=== PATIENT | female | born 1960 | race Caucasian/White ===

== ENCOUNTER 2020-02-17 08:19 | Outpatient (NON) | payer MEDICARE, MEDICAID, SELFPAY ==
[2020-02-17 21:13] LABS: SARS-CoV-2 RNA PCR Negative
== END 2020-02-17 08:20 ==
PROVIDERS: PCP Family Medicine; Visit Provider Family Medicine
DX: Z20.828 Contact with and (suspected) exposure to other viral communicable diseases (principal)
CPT/HCPCS: 87635; C9803; U0003

== ENCOUNTER 2020-11-09 08:10 | Outpatient (CLI) | payer MEDICARE, MEDICAID, SELFPAY ==
[2020-11-09 09:30] LABS: Basophils Absolute Auto 0.1 K/mm3 (0.0-0.1); Basophils Percent Auto 0.8 % (0.2-1.2); Eosinophils Absolute Auto 0.1 K/mm3 (0-0.3); Eosinophils Percent Auto 1.5 % (0-4.4); Hematocrit 41.3 % (37.0-47.0); Hemoglobin 13.9 g/dL (12.0-15.0); Immature Granulocyte Absolute 0.02 K/mm3 (0.00-0.031); Immature Granulocyte Percent A 0.3 % (0-0.5); Lymphocytes Absolute Auto 1.86 K/mm3 (0.9-3.2); Mean Corpuscular HGB Conc 33.7 g/dl (32-36); Mean Corpuscular Hemoglobin 31.1 pg (26-34); Mean Corpuscular Volume 92.4 fl (80-100); Monocytes Absolute Auto 0.6 K/mm3 (0.1-0.6); Monocytes Percent Auto 9.5 % (2.6-8.5); Neutrophils Absolute Auto 3.4 K/mm3 (1.3-6.7); Neutrophils Percent Auto 56.9 % (45.5-73.1); Platelet Count Result 217 k/mm3 (150-375); Red Blood Count 4.47 M/mm3 (4.2-5.4)
[2020-11-09 09:48] LABS: Alanine Aminotransferase 16 U/L (4-35); Albumin Level 4.4 g/dL (3.5-5.1); Alkaline Phosphatase 72 U/L (38-126); Anion Gap 8 mmol/L (8-16); Aspartate Amino Transferase 26 U/L (14-36); Bilirubin,Total 0.8 mg/dL (0.2-1.3); Blood Urea Nitrogen 11 mg/dL (7-17); Calcium 9.2 mg/dL (8.4-10.2); Carbon Dioxide 26 mmol/L (22-30); Chloride 104 mmol/L (98-107); Estimated Glomerular Filt Rate > 60; Glucose 102 mg/dL (65-105); Potassium 4.2 mmol/L (3.4-5.0); Sodium 138 mmol/L (137-145)
[2020-11-09 10:12] LABS: Total Triiodothyronine (T3) 1.36 NG/ML (0.97-1.69)
[2020-11-09 11:30] LABS: Free T4 Free Thyroxine 1.25 ng/mL (0.78-2.19)
== END 2020-11-09 08:11 | disposition home or self-care (01) ==
PROVIDERS: PCP Family Medicine; Visit Provider Nurse Practitioner
DX: F51.01 Primary insomnia (principal); K21.9 Gastro-esophageal reflux disease without esophagitis; J44.9 Chronic obstructive pulmonary disease, unspecified; Z13.0 Encounter for screening for diseases of the blood and blood-forming organs and certain disorders involving the immune mechanism; Z13.6 Encounter for screening for cardiovascular disorders; Z13.220 Encounter for screening for lipoid disorders; Z13.29 Encounter for screening for other suspected endocrine disorder; E55.9 Vitamin D deficiency, unspecified; Z12.11 Encounter for screening for malignant neoplasm of colon; M79.7 Fibromyalgia
CPT/HCPCS: 36415; 80053; 84439; 84443; 84480; 85025

== ENCOUNTER 2021-03-21 10:47 | Emergency (ER) | payer MEDICARE, MEDICAID, SELFPAY ==
--- NOTE | ~2021-03-21 | XR_ITS ---
XR shoulder RT min 2V DATE: 03/21/2021 12:08 INDICATION: Right shoulder pain for one year TECHNIQUE: 4 views COMPARISON: None FINDINGS: There is thoracic scoliosis. No fracture or dislocation, periosteal reaction or bone destruction or abnormal soft tissue calcifica tion of the right shoulder. IMPRESSION: No significant abnormality of the right shoulder Thoracic scoliosis Reviewed, dictated and finalized at location A. ERY MATER
[2021-03-21 11:08] VITALS: BP 120/67; RESP 16; TEMP 37.4; O2SAT 99
--- NOTE | 2021-03-21 11:46 | ED.UPPEXIN ---
HPI - Extremity Injury (Upper) General Chief Complaint: Extremity Injury, Upper Stated Complaint: right shoulder pain Time Seen by Provider: 03/21/21 11:46 Source: patient Mode of arrival: ambulatory Limitations: no limitations History of Present Illness HPI narrative: Denise Kruger is a 60 yo female with asthma, fibromyalcia, who [facility] with right shoulder pain with no loss of strength. Able to do all activities but states it hurts along the top of her shoulder and is into the top of her bicep Related Data Home Medications Medication Instructions Recorded Confirmed albuterol sulfate INHALATION 03/21/21 fluticasone furoate-vilanterol INHALATION 03/21/21 [Breo Ellipta] hydrocodone-acetaminophen tablet 03/21/21 trazodone 03/21/21 Allergies Allergy/AdvReac Type Severity Reaction Status Date / Time Penicillins Allergy Unknown Other Verified 03/21/21 11:22 Contrast Media Allergy Intermediate Other Uncoded 03/21/21 11:22 Review of Systems Review of Systems: CONSTITUTIONAL: Denies fever, chills, sweats. EYES: Denies visual changes, redness, discharge. ENT: Denies rhinorrhea, congestion, sore throat, otalgia. CARDIOVASCULAR: Denies chest pain, palpitations, edema. RESPIRATORY: Denies dyspnea, wheezing, cough GASTROINTESTINAL: Denies abdominal pain, nausea, vomiting, diarrhea. GENITOURINARY: Denies dysuria, hematuria, abnormal discharge SKIN: Denies rash or itching. NEUROLOGIC: Denies numbness, or focal weakness. PSYCHIATRIC: Denies anxiety or depression. Right upper arm pain, pain at top of shoulder PMFSH Past Medical History Medical History Asthma Fibromyalgia Family History Family History Mother Family history of lung cancer Family history of lymphoma Social History Social History (Updated 03/21/21 @ 11:56 by Dayami Ramirez CNP) Smoking packs per day: 0.25 Smoking cigarettes per day: 5.0 Smoking status: Current every day smoker Second hand tobacco smoke exposure: Yes Alcohol intake: never Comments At time of signature, I agree with nursing past medical, surgical, social and family history. There is no relevant family history pertinent to the presenting complaint. Exam Narrative: GENERAL: This is a well-nourished, well-developed patient, in mild distress. HEAD: normocephalic, atraumatic. EYES: Sclera clear/white. Vision is grossly intact. EARS: External ears normal, auditory canals clear and without drainage, TMs normal without perforation. Hearing grossly intact. NOSE: External nose normal without nasal discharge, nares without redness, no rhinorrhea. THROAT: Mucous membranes moist, posterior pharynx NECK: Neck supple, non-tender CARDIOVASCULAR: Regular rate and rhythm without murmurs, gallops, or rubs. RESPIRATORY: Clear to auscultation. Breath sounds equal bilaterally. No wheezes, rales, or rhonchi. GASTROINTESTINAL: Abdomen soft, non-tender, SKIN: warm, intact with no suspicious lesions or rash, good texture and turgor. NEURO: awake, alert, and oriented to person, place and time. There were no obvious focal neurologic abnormalities. Steady gait EXTREMITIES: Normal range of motion. Right shoulder pain at the top of the shoulder at rotator cuff but pain radiates into right upper bicep. Mild right neck pain with movement up and down BACK: Nontender without deformity Course Course Emergency Course: Patient comes to [facility] for evaluation of right shoulder pain on the top of the shoulder that radiates into the bicep, has had neck issues with tingling in her fingers in the past X-ray of right shoulder shows thoracic scoliosis, no significant abnormality of the right shoulder Started on baclofen and continue with pain medication may add 60 mg ibuprofen 3 times daily to other medication in the short-term to manage pain Vital Signs Vital signs: Vital
== END 2021-03-21 12:40 | disposition home or self-care (01) ==
PROVIDERS: Emergency Provider Nurse Practitioner; PCP Family Medicine
DX: M54.10 Radiculopathy, site unspecified (principal); J45.909 Unspecified asthma, uncomplicated; M79.7 Fibromyalgia; F17.210 Nicotine dependence, cigarettes, uncomplicated
CPT/HCPCS: 73030; 99213; G0463

== ENCOUNTER 2021-10-10 14:28 | Outpatient (CLI) | payer MEDICARE, MEDICAID, SELFPAY ==
--- NOTE | ~2021-10-10 | XR_ITS ---
XR lumbar spine 2-3V DATE: 10/10/2021 14:52 INDICATION: Chronic back pain TECHNIQUE: AP, lateral, coned lateral lumbosacral views COMPARISON: None FINDINGS: There is osteopenia. Normal alignment of the lumbar spine. No fracture or bone destruction or spondylolisthesis. The lumba r pedicles are intact. Lumbar and lumbosacral interspaces are well preserved. The sacral iliac joints appear normal. Status post bilateral tubal ligation. IMPRESSION: Osteopenia Reviewed, dictated and finalized at location A. IMPRESSION: Osteopenia
== END 2021-10-10 14:29 | disposition home or self-care (01) ==
LOC: ANHIMG 14:38
PROVIDERS: PCP Family Medicine
DX: M54.9 Dorsalgia, unspecified (principal); M85.88 Other specified disorders of bone density and structure, other site
CPT/HCPCS: 72100

== ENCOUNTER 2022-12-18 19:42 | Emergency (ER) | payer MEDICARE, MEDICAID, SELFPAY ==
[2022-12-18 19:47] VITALS: BP 126/71; PULSE 98; RESP 16; TEMP 36.7; O2SAT 100
--- NOTE | 2022-12-18 20:07 | ED.EYEPROB ---
HPI - Eye Problem General Chief complaint: Eye Problems Stated complaint: Right Eye Irritation Time Seen by Provider: 12/18/22 20:00 Source: patient Mode of arrival: ambulatory Limitations: no limitations History of Present Illness HPI Narrative: 62 y/o female presented for c/o persistent stye to right upper eyelid for about 3 weeks. Onset was during URI, pt has taken 15 days of antibiotics prescribed by urgent care, which she completed 3 days ago. States she contacted her PCP today regarding the stye, and was prescribed Amoxicillin, she states she does not want to take another course of abx. Denies vision changes, photophobia, foreign body, injury, or drainage. chief complaint: eye pain Related Data Allergies Allergy/AdvReac Type Severity Reaction Status Date / Time Penicillins Allergy Unknown Other Verified 12/18/22 19:56 Contrast Media Allergy Intermediate Other Uncoded 12/18/22 19:56 Review of Systems Review of Systems: CONSTITUTIONAL: Denies body aches, fever, chills EYES:Endorses swelling, redness and pain to right upper eyelid; denies FB sensation, photophobia,visual changes ENT: Denies rhinorrhea, congestion, sore throat, or otalgia. CARDIOVASCULAR: Denies chest pain, palpitations RESPIRATORY: Denies cough or dyspnea. GASTROINTESTINAL: Denies abdominal pain, nausea, vomiting, or diarrhea. SKIN: Denies rash, itching, or wounds. MUSCULOSKELETAL: Denies back pain, joint pain, or myalgia. NEUROLOGIC: Denies headache, numbness, tingling, or weakness. All systems reviewed & are unremarkable except as noted in HPI and below PMFSH Past Medical History Medical History Asthma Fibromyalgia Family History Family History Mother Family history of lung cancer Family history of lymphoma Social History Social History Smoking packs per day: 0.25 Smoking cigarettes per day: 5.0 Smoking status: Current every day smoker Second hand tobacco smoke exposure: Yes Alcohol intake: never Comments At time of signature, I have reviewed and agree with nursing past medical, surgical, social and family history unless otherwise noted. Please see nursing chart for further information. There is no relevant family history pertinent to the presenting complaint Exam Narrative: GENERAL: Well-appearing HEAD: Normocephalic, atraumatic. EYES: Right upper eye lid swelling, redness and tenderness at mid lid c/w external hordeolum. No conjunctival injection or drainage, perrla, EOMI. Lid eversion shows no FB. ENT: Mucous membranes pink and moist. No rhinorrhea. TMs normal bilaterally. Throat normal. Uvula midline. CHEST: Clear to auscultation. HEART: Regular rate and rhythm. ABDOMEN: Soft, nontender, nondistended SKIN: Warm, dry, no rash. Normal skin turgor. NEURO: No focal deficits. Alert and oriented x3 PSYCH: Normal affect. Course Course Emergency Course: Patient is aware of diagnosis, understands and agrees to treatment plan. Anticipatory guidance given. Patient agrees to follow-up as directed and is aware of reasons to seek care at the emergency department. Portions of this record may have been created with voice recognition software Level of Care: Express Care Visit Vital Signs Vital signs: Vital Signs Temperature 98.0 F 12/18/22 19:47 Pulse Rate 98 12/18/22 19:47 Respiratory Rate 16 12/18/22 19:47 Blood Pressure 126/71 12/18/22 19:47 Pulse Oximetry 100 12/18/22 19:47 Oxygen Delivery Room Air 12/18/22 19:47 Temperature 98.0 F 12/18/22 19:47 Pulse Rate 98 12/18/22 19:47 Respiratory Rate 16 12/18/22 19:47 Blood Pressure 126/71 12/18/22 19:47 Pulse Oximetry 100 12/18/22 19:47 Oxygen Delivery Room Air 12/18/22 19:47 MDM - Eye Problem MDM Narrative Medical decision making kita
== END 2022-12-18 20:11 | disposition home or self-care (01) ==
PROVIDERS: Emergency Provider Nurse Practitioner Family; PCP Family Medicine
DX: H00.011 Hordeolum externum right upper eyelid (principal); F17.210 Nicotine dependence, cigarettes, uncomplicated; J45.909 Unspecified asthma, uncomplicated; M79.7 Fibromyalgia
CPT/HCPCS: 99211; G0463

== ENCOUNTER 2023-01-18 14:12 | Emergency (ER) | payer MEDICARE, MEDICAID, SELFPAY ==
--- NOTE | ~2023-01-18 | XR_ITS ---
EXAMINATION: XR foot RT min 3V DATE: 01/18/2023 14:44 INDICATION: Trauma to the right fourth and fifth toes TECHNIQUE: Dorsoplantar, two oblique and lateral views of the right foot were obtained. COMPARISON: None. FINDINGS: 20 degrees hallux valgus bunion with mild hypertrophic change along the medial head of the first meta tarsal. Alignment is otherwise normal. Irregular cortical contour and the diaphysis of the right four th proximal phalanx suspicious for age indeterminate nondisplaced fracture. No other lesions suspicio us for fracture identified. Mild osteoarthritis at the first metatarsophalangeal and a few tarsometat arsal and interphalangeal joints. Soft tissue swelling lateral to the fifth metatarsophalangeal joint IMPRESSION: 1. Irregular cortical contour to the diaphysis of the right fifth metatarsal suspicious for age indet erminate fracture. Favor chronic but would correlate for location of the reported prior to fracture. Reviewed, dictated and finalized at location A. IMPRESSION: 1. Irregular cortical contour to the diaphysis of the right fifth metatarsal bauer spicious for age indeterminate fracture. Favor chronic but would correlate for location of the reported prior to fracture.
--- NOTE | 2023-01-18 14:22 | ED.GENADULT ---
HPI - General Adult General Chief complaint: Extremity Injury, Lower Stated complaint: Right Foot Pain Source: patient and RN notes reviewed History of Present Illness HPI narrative: 62 yo F presents to urgent care with complaints of right foot pain. Pt states she got up in the middle of the night and accidentally kicked the door frame with her right foot. Pt presents with bruising, swelling, and tenderness to her foot. Denies any numbness, tingling, or other injury. Pt has not taken anything for her symptoms. Related Data Home Medications Medication Instructions Recorded Confirmed albuterol sulfate 2.5 mg/3 mL mg 01/18/23 (0.083 %) solution for nebulization famotidine 20 mg tablet mg 01/18/23 fluticasone furoate 100 inhalation 01/18/23 mcg-vilanterol 25 mcg/dose inhalation powder (Breo Ellipta) hydrocodone 10 mg-acetaminophen tablet 01/18/23 325 mg tablet Allergies Allergy/AdvReac Type Severity Reaction Status Date / Time Penicillins Allergy Unknown Other Verified 01/18/23 14:28 Contrast Media Allergy Intermediate Other Uncoded 01/18/23 14:28 Review of Systems Review of Systems: CONSTITUTIONAL: Denies fever, chills, or sweats. EYES: Denies visual changes, redness, or discharge. ENT: Denies otalgia and sore throat CARDIOVASCULAR: Denies chest pain, palpitations, or edema. RESPIRATORY: Denies cough or dyspnea. GASTROINTESTINAL: Denies abdominal pain, nausea, vomiting, or diarrhea. GENITOURINARY: Denies dysuria or hematuria. SKIN: Denies rash or itching. MUSCULOSKELETAL: right foot pain NEUROLOGIC: Denies headache, numbness, or weakness. Pertinent positives per HPI. [facility] Past Medical History Medical History Asthma Fibromyalgia Family History Family History Mother Family history of lung cancer Family history of lymphoma Social History Social History Smoking packs per day: 0.25 Smoking cigarettes per day: 5.0 Smoking status: Current every day smoker Second hand tobacco smoke exposure: Yes Alcohol intake: never Comments At the time of my signature, I reviewed and agree with the nursing past medical, surgical, social, and family history. There is no relevant family history pertinent to the patient complaint. Exam Narrative: GENERAL: This is a well-nourished, well-developed patient, in no apparent distress. HEAD: normocephalic, atraumatic. EYES: Sclera clear/white. Vision is grossly intact. EARS: External ears normal, auditory canals clear and without drainage. Hearing grossly intact. NOSE: External nose normal with no obvious nasal discharge, nares without redness, no rhinorrhea. THROAT: Mucous membranes moist, posterior pharynx clear. NECK: Neck supple, non-tender without lymphadenopathy, masses or thyromegaly. CARDIOVASCULAR: Regular rate RESPIRATORY: No respiratory distress. SKIN: warm, intact with no suspicious lesions or rash, good texture and turgor. NEURO: awake, alert, and oriented to person, place and time. There were no obvious focal neurologic abnormalities. EXTREMITIES: bruising, mild swelling, and tenderness to right, distal, 5th, metatarsal BACK: Nontender without deformity or crepitus. No flank tenderness. Course Course Level of Care: Express Care Visit Vital Signs Vital signs: Vital Signs Temperature 99.2 F 01/18/23 14:37 Pulse Rate 93 01/18/23 14:37 Respiratory Rate 01/18/23 14:37 Blood Pressure 120/69 01/18/23 14:37 Pulse Oximetry 100 01/18/23 14:37 Oxygen Delivery Room Air 01/18/23 14:37 Temperature 99.2 F 01/18/23 14:37 Pulse Rate 93 01/18/23 14:37 Respiratory Rate 16 01/18/23 14:37 Blood Pressure 120/69 01/18/23 14:37 Pulse Oximetry 100 01/18/23 14:37 Oxygen Delivery Room Air 01/18/23 14:37 reviewed Medical Dec
[2023-01-18 14:37] VITALS: BP 120/69; PULSE 93; RESP 16; TEMP 37.3; O2SAT 100
== END 2023-01-18 15:35 | disposition home or self-care (01) ==
PROVIDERS: Emergency Provider Nurse Practitioner Family; PCP Family Medicine
DX: S92.901A Unspecified fracture of right foot, initial encounter for closed fracture (principal); W22.09XA Striking against other stationary object, initial encounter; J45.909 Unspecified asthma, uncomplicated; M79.7 Fibromyalgia; F17.210 Nicotine dependence, cigarettes, uncomplicated
CPT/HCPCS: 73630; 99214; G0463

== ENCOUNTER 2023-06-12 09:06 | Outpatient (CLI) | payer MEDICARE, MEDICAID, SELFPAY ==
[2023-06-12 10:26] LABS: Basophils Percent Auto 0.5 % (0.2-1.2); Eosinophils Absolute Auto 0.1 K/mm3 (0-0.3); Eosinophils Percent Auto 1.6 % (0-4.4); Hematocrit 40.1 % (37.0-47.0); Immature Granulocyte Absolute 0.01 K/mm3 (0.00-0.031); Immature Granulocyte Percent A 0.2 % (0-0.5); Lymphocytes Percent Auto 31.3 % (18.3-44.2); Mean Corpuscular HGB Conc 32.4 g/dl (32-36); Mean Corpuscular Hemoglobin 30.8 pg (26-34); Mean Platelet Volume 11.5 fl (7.4-10.4); Monocytes Absolute Auto 0.6 K/mm3 (0.1-0.6); Monocytes Percent Auto 9.4 % (2.6-8.5); Neutrophils Absolute Auto 3.7 K/mm3 (1.3-6.7); Platelet Count Result 225 k/mm3 (150-375); Red Blood Count 4.22 M/mm3 (4.2-5.4); Red Cell Distribution Width 13.4 % (11.5-14.5); White Blood Count 6.4 K/mm3 (4.5-10.0)
[2023-06-12 10:36] LABS: Alanine Aminotransferase 17 U/L (6-35); Albumin Level 4.1 g/dL (3.5-5.1); Alkaline Phosphatase 63 U/L (38-126); Anion Gap 6 mmol/L (8-16); Aspartate Amino Transferase 23 U/L (14-36); Bilirubin,Total 0.8 mg/dL (0.2-1.3); Blood Urea Nitrogen 11 mg/dL (7-17); Calcium 9.2 mg/dL (8.4-10.2); Carbon Dioxide 26 mmol/L (22-30); Chloride 105 mmol/L (98-107); Cholesterol 205 mg/dL (0-200); Estimated Glomerular Filt Rate > 60; Glucose 97 mg/dL (65-110); HDL Direct 59 mg/dL; Potassium 4.4 mmol/L (3.4-5.0); Sodium 137 mmol/L (137-145); Triglycerides 62 mg/dL (<150)
[2023-06-12 10:48] LABS: LDL Cholesterol Direct 123 mg/dL
[2023-06-12 11:06] LABS: Free T4 Free Thyroxine 1.21 ng/mL (0.78-2.19)
[2023-06-12 11:07] LABS: Total Triiodothyronine (T3) 1.29 NG/ML (0.97-1.69)
== END 2023-06-12 09:07 | disposition home or self-care (01) ==
LOC: ANHLAB 09:15
PROVIDERS: PCP Family Medicine
DX: E78.5 Hyperlipidemia, unspecified (principal); R53.83 Other fatigue
CPT/HCPCS: 36415; 80053; 80061; 84439; 84443; 84480; 85025

== ENCOUNTER 2023-08-22 10:56 | Emergency (ER) | payer MEDICARE, MEDICAID, SELFPAY ==
--- NOTE | ~2023-08-22 | XR_ITS ---
XR hand LT min 3V 08/22/2023 11:50 INDICATION: Left hand pain PROCEDURE: 3 views left hand COMPARISON: No prior studies for comparison. FINDINGS: Fracture, dislocation or subluxation is not identified. Mild osteoarthritis of the first ca rpal metacarpal joint. The soft tissues appear within normal limits. No foreign bodies are identifie d. IMPRESSION: 1: NO ACUTE BONE OR JOINT ABNORMALITY IDENTIFIED. Reviewed, dictated and finalized at location B.
[2023-08-22 10:57] VITALS: BP 136/88; PULSE 102; RESP 16; TEMP 37.2; O2SAT 97
--- NOTE | 2023-08-22 11:15 | PC.NURSE ---
Pt states she took a Hydrocodone this morning around 0700 but reports it did nothing for her pain
--- NOTE | 2023-08-22 11:52 | ED_ITS ---
HPI - Extremity Injury (Upper) General Chief Complaint: Extremity Injury, Upper Stated Complaint: Hand issue Time Seen by Provider: 08/22/23 11:24 History of Present Illness HPI narrative: 63-year-old female with history of fibromyalgia presents to emergency department for left hand pain x2 weeks. Patient states 3 weeks ago she was opening a jar and about a week later began developing pain over the palmar aspect of her hand. She has seen that it was secondary to opening a jar. She was seen at urgent care about 1 week ago and had negative x-rays of the hand. She has been wearing a wrist splint and has been icing the hand without improvement. She has also been on 2 rounds of steroids from urgent care without improvement of hand pain. She takes hydrocodone for chronic pain which she has been taking without improvement. Related Data Home Medications Medication Instructions Recorded Confirmed hydrocodone 10 mg-acetaminophen tablet 01/18/23 06/16/23 325 mg tablet albuterol sulfate 2.5 mg/3 mL mg inhalation PRN 03/20/23 06/16/23 (0.083 %) solution for nebulization acyclovir PO PRN 06/16/23 06/16/23 cetirizine 10 mg tablet (Zyrtec) 5 mg PO DAILY PRN 06/16/23 06/16/23 cholecalciferol (vitamin D3) PO 2XW 06/16/23 06/16/23 Allergies Allergy/AdvReac Type Severity Reaction Status Date / Time Iodinated Contrast Media Allergy Unknown Sneezing Verified 08/22/23 11:16 Penicillins Allergy Unknown Other Verified 08/22/23 11:16 Review of Systems Review of Systems: CONSTITUTIONAL: Denies fever, chills, or sweats. EYES: Denies visual changes, redness, or discharge. ENT: Denies rhinorrhea, congestion, sore throat, or otalgia. CARDIOVASCULAR: Denies chest pain, palpitations, or edema. RESPIRATORY: Denies cough or dyspnea. GASTROINTESTINAL: Denies abdominal pain, nausea, vomiting, or diarrhea. GENITOURINARY: Denies dysuria or hematuria. SKIN: Denies rash or itching. MUSCULOSKELETAL: See HPI NEUROLOGIC: Denies headache, numbness, or weakness. PSYCHIATRIC: Denies anxiety or depression. [facility] Past Medical History Medical History Anxiety Asthma Crohn's disease Fibromyalgia History of back injury History of pulmonary embolism Surgical History Surgical History History of breast implant History of surgery of uterus History of tonsillectomy Family History Family History Mother Family history of lung cancer Family history of lymphoma Father Depression Anxiety Alcoholism Social History Social History Social History: Caffeine-coffee/soda Smoking packs per day: 0.5 Smoking cigarettes per day: 10.0 Smoking status: Current every day smoker Tobacco type: cigarettes Second hand tobacco smoke exposure: Yes Alcohol intake: current Alcohol use details: occasional Substance use: never Substance use type: does not use Current Housing: Decline to Answer Concerned About Future Housing: Decline to Answer Difficulty Paying Gas/Electric Bills: Decline to Answer Difficulty Paying for Meds: Decline to Answer Currently Unemployed: Decline to Answer Education: Decline to Answer Difficulty w/ Childcare or Family Care: Decline to Answer Living arrangements: alone Occupation/Education: unemployed Additional occupation/education comments: disabled Exam Narrative: GENERAL: Well-appearing, well-nourished, and in no acute distress. HEAD: Normocephalic, atraumatic. NECK: Supple. CHEST: Clear to auscultation. No respiratory distress. HEART: Regular rate and rhythm. No murmur heard. Normal peripheral pulses. EXTREMITIES: LUE: No obvious deformity, ecchymosis or edema. Patient points to her thenar eminence when describing pain but has no tenderness to palpation. She has full range of motion of her hand and wrist. No tenderness to her ulna or radius, no snuffbox tenderness. No tenderness to fingers, carpal or metacarpals. Negative Padmaja's test. She is able to do a thumbs-up, oppose thumb and 5th digit, flex her fingers and extend her hand, and make a fist. Sensation intact throughout. Cap refill less than 2. Radial pulse 2 +. SKIN: Warm, dry, no rash. NEURO: No focal deficits. Alert and oriented x3 Course Vital Signs Vital signs: Vital Signs Temperature 98.9 F 08/22/23 10:57 Pulse Rate 102 H 08/22/23 10:57 Respiratory Rate 16 08/22/23 10:57 Blood Pressure 136/88 08/22/23 10:57 Pulse Oximetry 97 08/22/23 10:57 Oxygen Delivery Room Air 08/22/23 10:57 Temperature 98.9 F 08/22/23 10:57 Pulse Rate 102 H 08/22/23 10:57 Respiratory Rate 16 08/22/23 10:57 Blood Pressure 136/88 08/22/23 10:57 Pulse Oximetry 97 08/22/23 10:57 Oxygen Delivery Room Air 08/22/23 10:57 MDM - Extremity Injury (Upper) MDM Narrative Medical decision making narrative: 63-year-old female presents to the emergency department for pain overlying her thenar eminence x2 weeks. She has had negative films at urgent care and has been on 2 rounds of steroids without improvement. Triage vital significant for mild tachycardia 102, otherwise unremarkable. Exam significant for the above. X-rays of the hand are unremarkable. Imaging and exam discussed with the patient. Will prescribe naproxen, encouraged her to continue wearing the splint, ice and follow up with Hand surgery. Referral provided. ED return precautions discussed. She is agreeable to plan verbalized understanding. Discharged in stable condition. Discharge Plan Discharge Clinical Impression: Hand sprain Qualifiers: Encounter type: initial encounter Laterality: left Qualified Code(s): S63.92XA - Sprain of unspecified part of left wrist and hand, initial encounter Patient Disposition: Home, Self-Care Condition: Stable Instructions: Antibiotic Form, Hand Sprain (ED) Additional Instructions: You were evaluated in the emergency department for left hand pain. Her x-rays do not show any broken bones or bony abnormalities. Please continue to wear the splint to her wearing, ice, and take naproxen as prescribed. He can also take your prescribed pain medications as directed. Please follow-up closely with a hand surgeon for further evaluation treatment. Return to the emergency department if you develop worsening or concerning symptoms. Prescriptions: New naproxen 500 mg tablet 500 mg PO BID PRN (Reason: pain) Qty: 20 0RF No Action hydrocodone-acetaminophen 10-325 mg tablet albuterol sulfate 2.5 mg /3 mL (0.083 %) solution for nebulization inhalation PRN cholecalciferol (vitamin D3) PO 2XW acyclovir PO PRN cetirizine [Zyrtec] 10 mg tablet 5 mg PO DAILY PRN fluticasone propionate [Flonase Allergy Relief] 50 mcg/actuation spray,suspension 1 - 2 spray intranasal BID Qty: 16 1RF Rx Instructions: administer into each nostril. Aim back/up/out Follow-up/Referrals: Gretchen Peres MD [Physician] - 1 Day Fermín Langford MD [Primary Care Provider] -
[2023-08-22 12:23] VITALS: BP 119/59; PULSE 82; RESP 16; TEMP 36.6; O2SAT 96
== END 2023-08-22 12:25 | disposition home or self-care (01) ==
PROVIDERS: Emergency Provider Physician Assistant; PCP Family Medicine
DX: S63.92XA Sprain of unspecified part of left wrist and hand, initial encounter (principal); J45.909 Unspecified asthma, uncomplicated; K50.90 Crohn's disease, unspecified, without complications; M79.7 Fibromyalgia; F17.210 Nicotine dependence, cigarettes, uncomplicated; Z86.711 Personal history of pulmonary embolism; X50.9XXA Other and unspecified overexertion or strenuous movements or postures, initial encounter
CPT/HCPCS: 73130; 99283

== ENCOUNTER 2023-09-26 08:20 | Outpatient (CLI) | payer MEDICARE, MEDICAID, SELFPAY ==
--- NOTE | ~2023-09-26 | CT_ITS ---
EXAMINATION: CT soft tissue neck w con DATE: 09/26/2023 08:51 INDICATION: Malignant neoplasm of larynx, unspecified. TECHNIQUE: Computed tomography (CT) of the neck was performed with 75 mL Omnipaque-350 intravenous co ntrast. Automated exposure control and iterative reconstruction technique were employed. The dose-bairon gth product was 467.43 mGy-cm. COMPARISON: None FINDINGS: There is mild emphysema. There is mild scarring at the lung apices. There is a 3 mm nodule in left thyroid lobe, likely not clinically significant. There are no pathologically enlarged lymph n odes. There is no visible plaque in the proximal internal carotid arteries. The pharynx and larynx ar e unremarkable. There is mild mucosal thickening in the ethmoid sinuses. The mastoid air cells are no rmal. There is severe cervical spondylosis. IMPRESSION: 1. No malignancy identified. Reviewed, dictated and finalized at location A.
[2023-09-26 08:38] LABS: Estimated Glomerular Filt Rate > 60
== END 2023-09-26 08:21 | disposition home or self-care (01) ==
PROVIDERS: PCP Family Medicine; Visit Provider Radiology Radiation Oncology
DX: C32.9 Malignant neoplasm of larynx, unspecified (principal)
CPT/HCPCS: 70491; Q9967

== ENCOUNTER 2024-01-08 10:45 | Outpatient (CLI) | payer MEDICARE, MEDICAID, SELFPAY ==
[2024-01-08 11:09] LABS: Basophils Percent Auto 0.7 % (0.2-1.2); Eosinophils Absolute Auto 0.1 K/mm3 (0-0.3); Eosinophils Percent Auto 1.1 % (0-4.4); Hematocrit 40.2 % (37.0-47.0); Hemoglobin 13.4 g/dL (12.0-15.0); Immature Granulocyte Absolute 0.06 K/mm3 (0.00-0.031); Immature Granulocyte Percent A 1.4 % (0-0.5); Lymphocytes Absolute Auto 1.06 K/mm3 (0.9-3.2); Lymphocytes Percent Auto 24.1 % (18.3-44.2); Mean Corpuscular HGB Conc 33.3 g/dl (32-36); Mean Corpuscular Hemoglobin 31.8 pg (26-34); Mean Corpuscular Volume 95.5 fl (80-100); Mean Platelet Volume 10.2 fl (7.4-10.4); Monocytes Absolute Auto 0.6 K/mm3 (0.1-0.6); Monocytes Percent Auto 12.7 % (2.6-8.5); Neutrophils Absolute Auto 2.6 K/mm3 (1.3-6.7); Platelet Count Result 181 k/mm3 (150-375); Red Blood Count 4.21 M/mm3 (4.2-5.4); White Blood Count 4.4 K/mm3 (4.5-10.0)
[2024-01-08 11:28] LABS: Alanine Aminotransferase 27 U/L (6-35); Alkaline Phosphatase 55 U/L (38-126); Anion Gap 5 mmol/L (4-12); Aspartate Amino Transferase 26 U/L (14-36); Bilirubin,Total 0.5 mg/dL (0.2-1.3); Blood Urea Nitrogen 12 mg/dL (7-17); Calcium 9.4 mg/dL (8.4-10.2); Carbon Dioxide 29 mmol/L (22-30); Chloride 102 mmol/L (98-107); Estimated Glomerular Filt Rate > 60; Glucose 86 mg/dL (65-110); Sodium 136 mmol/L (137-145)
[2024-01-08 11:53] LABS: Total Triiodothyronine (T3) 1.16 NG/ML (0.97-1.69)
[2024-01-08 11:54] LABS: Free T4 Free Thyroxine 1.15 ng/mL (0.78-2.19)
== END 2024-01-08 10:46 | disposition home or self-care (01) ==
LOC: ANHLAB 10:48
PROVIDERS: PCP Family Medicine; Visit Provider Registered Nurse
DX: C14.0 Malignant neoplasm of pharynx, unspecified (principal); R53.83 Other fatigue
CPT/HCPCS: 36415; 80053; 84439; 84443; 84480; 85025

== ENCOUNTER 2024-06-01 09:30 | Outpatient (RCR) | payer MEDICARE, MEDICAID, SELFPAY ==
[2023-09-16 13:04] VITALS: BMI 26.2
[2023-09-16 13:09] VITALS: BP 110/66; PULSE 88; TEMP 37.5; O2SAT 98
--- NOTE | 2023-09-16 15:01 | P.CONRAD_ITS ---
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 new patient who is seen today in [facility] at the request of Dr. Call to be evaluated and discuss radiation treatment options for her recent diagnosis of early larynx cancer. Information pertinent to this evaluation is as follows: 63 y/o female with smoking history who presented with progressive hoarseness and voice changes. She underwent in-office scope exam on 07/24/23 (Dr. Call) which revealed normal movement of vocal cords bilaterally, irregular tissue on superior surface of each anterior true vocal fold and false vocal cord with anterior commissure involvement. She underwent direct microlaryngoscopy with biopsy on 08/26/23 (Dr. Call) which noted diffuse sessile papillomatous lesions involving the surface of both vocal folds anteriorly, including anterior commissure, and extending onto the left false vocal cord. Biopsy confirmed keratinizing SCC. PET/CT from 09/02/23 showed no evidence of regional nalini or distant metastases. She was referred for definitive RT. She is not interested in surgical options as she would like to preserve her larynx and voice if possible. Denise Kruger presents to the radiation oncology clinic today for formal consultation. She is accompanied in clinic today by her boyfriend. She continues to have hoarseness in her voice. No neck masses. No neck or throat pain. Eating and drinking well. No dysphagia or odynophagia. She continues to smoke 0.5 PPD (prior 40 pack year smoking history). She has a history of fibromyalgia and is on disability for this. She lives in [place], [place] alone. 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 She reports a prior CT contrast allergy where she had to sneeze continuously for [address] scan 5 years ago. She did not have anaphylaxis and does not recall receiving any specific treatment for this contrast reaction . She had tolerated many prior CT scans with IV contrast without difficulty. Next dental evaluation scheduled for 09/22/23. Review of Systems: See HPI. Past Medical/Surgical History No prior history of radiotherapy No history of active collagen vascular disease including scleroderma No implanted pacemaker or defibrillator Social History Reviewed Family History Reviewed Allergies Reviewed, see above Medications No current outpatient medications on file. No current facility-administered medications for this visit. Physical Exam Vital signs There were no vitals filed for this visit. ECOG: (1) Restricted in physically strenuous activity, ambulatory and able to do work of light nature General Appearance: The patient is a well-developed, well-nourished female, sitting, in no acute distress. Eyes: EOMI. Sclerae are anicteric. ENMT: Mucous membranes are moist. The oropharynx is clear. Speech: Clear, fluent. Dentition: Fair Oral cavity mucosa: No lesions Oropharynx: No visible lesions Lymphatics: There is no palpable cervical, supraclavicular, or infraclavicular adenopathy. Respiratory: Breathing comfortably at rest without wheeze Skin: Skin of the head and neck has good turgor with no evidence of infection, tumor invasion, or breakdown. There are no surgical scars to suggest prior head and neck surgery. Radiology Review: I personally reviewed the available images from the radiologic examinations noted above in the HPI, with the findings as noted above. Histopathology: see HPI Diagnosis: Plan: 63 y/o female with current 40 pack year smoking history, history of fibromyalgia on disability, who presents with a new diagnosis of a [id number] SCC of the glottic larynx with involvement of the bilateral TVC/FVC and anterior commissure. She is pending CT neck. PET/CT shows no evidence of regional nalini or distant metastases. We discussed the use of radiotherapy alone for the treatment of early larynx cancer . The logistics and anticipated side effects of a course of definitive radiation were discussed. Radiation will be delivered daily, Friday through Friday, for approximately 6-7 weeks. Prior to the start of radiation, CT simulation would need to be performed. These images will be used in the treatment planning process, and treatment would be able to begin approximately 1 week after simulation. Anticipated acute effects of radiation were discussed and include but are not limited to fatigue, irritation, redness, dryness of the skin of the neck, painful swallowing, and potential for worsening hoarseness of voice due to transient edema during treatment. Late effects of treatment include the potential for dry mouth, scar tissue in the region of the treatment field, and potential for permanent laryngeal dysfunction including permanent alteration in voice quality. I would like to obtain a CT neck with contrast with pre-medication. I explained that local T staging is extremely important and PET/CT is not the ideal modality for T staging. I want to ensure she truly has T2 disease. I explained that for T2 disease, RT alone to the glottis is an appropriate treatment. However, if she has T3 disease, I would consider treating the bilateral neck LN electively and she would likely need concurrent chemotherapy for optimal chance of cancer control. Next steps: 1. Smoking cessation:Ms. Kruger was counseled extensively regarding the importance of smoking cessation. Continued smoking will both make radiation treatment more toxic as well as increase the risk of recurrence in the future. Development of invasive disease following radiation will often result in laryngectomy. Ms. Kruger understands the importance of complete smoking cessation. When she returns for CT simulation later this week she will let me know how I can best support her smoking cessation efforts and provide me with a quit date at which time she will throw away all smoking-related paraphernalia. 2. CT neck with contrast for local staging. I advised her to take 50 mg of oral bendaryl 1 hour prior to the scan. 3. CT Simulation will be scheduled in the coming week at the time of nearest convenience to the patient. On 09/30/23. Ms. Kruger had a chance to ask questions, and all were answered to her apparent satisfaction. She was provided with my contact information and knows that she can call us at any time with any questions or concerns that may arise prior to her scheduled return visit. Ms. Kruger is noted to have 0/10 pain in clinic today. Her individualized pain management will therefore consist of no intervention needed as the patient notes no pain of significance. Thank you for the opportunity to participate in Ms. Kruger's care. Please do not hesitate to contact me if I can provide any additional assistance. Kai Tellez MD I spent 60 minutes on visit today, including chart review, time with patient, documentation, and coordination of care. - Medical History Medical History (Last Reviewed 08/22/23 @ 11:53 by Phoeeb Beatty PA-C) Anxiety Asthma Crohn's disease Fibromyalgia History of back injury History of pulmonary embolism - Surgical History Surgical History (Last Reviewed 08/22/23 @ 11:53 by Phoebe Beatty PA-C) History of breast implant History of surgery of uterus History of tonsillectomy - Family History Family History (Last Reviewed 08/22/23 @ 11:53 by Phoebe Beatty PA-C) Mother Family history of lung cancer Family history of lymphoma Father Depression Anxiety Alcoholism - Social History Social History (Last Reviewed 08/22/23 @ 11:53 by Phoebe Beatty PA-C) Alcohol Use: Alcohol intake: current Alcohol use details: occasional Substance Use: Substance use: never Substance use type: does not use Others: Spiritual care concerns: No Living Arrangements: Living arrangements: alone Oppucation/Education: Occupation/Education: unemployed Smoking Status: Smoking status: Current every day smoker Tobacco type: cigarettes Second hand tobacco smoke exposure: Yes Smoking Pack-years: Smoking packs per day: 1 Smoking cigarettes per day: 20.0 Years smoked: 40 Smoking pack-years: 40.00 Comments: Additional smoking assessment comments: down to .5 pack now Social Determinants of Health: What is Your Housing Situation Today?: Decline to Answer Are You Worried That in the Next 2 Months, You May Not Have Your Own Housing to Live In?: Decline to Answer Do You Have Trouble Paying Your Heating Or Electricity Bill?: Decline to Answer Do You Have Trouble Paying For Medicines?: Decline to Answer Are You Currently Unemployed and Looking for Work?: Decline to Answer Highest Level of Education Completed: Decline to Answer Do You Have Trouble With Childcare or the Care of a Family Member?: Decline to Answer - Allergies Allergies Allergy/AdvReac Type Severity Reaction Status Date / Time Iodinated Contrast Media Allergy Unknown Sneezing Verified 08/22/23 11:16 Penicillins Allergy Unknown Other Verified 08/22/23 11:16 Exam - Vital Signs Vital Signs - 24 hr 09/16/23 13:09 Temperature 37.5 C Pulse Rate 88 Blood Pressure 110/66 Pulse Oximetry 98
--- NOTE | 2023-09-30 10:19 | PDRADONCFUV ---
Follow Up Note - Date/Time 09/30/23 10:19 - Interval History RADIATION ONCOLOGY FOLLOW UP DOS: 09/30/23 DIAGNOSIS: 63 y/o female with current 40 pack year smoking history, history of fibromyalgia on disability, who presents with a new diagnosis of a [id number] SCC of the glottic larynx with involvement of the bilateral TVC/FVC and anterior commissure. PET/CT shows no evidence of regional nalini or distant metastases. I plan to treat her with definitive RT alone 70Gy/35Fx using IMRT. HISTORY & NARRATIVE: She was previously seen in consultation and returns today for @HIS@ CT simulation. Since consultation, she reports feeling generally well. There have been no significant changes to the health history in the interim. CT neck showed no evidence of more advanced local disease (such as thyroid cartilage invasion). PHYSICAL EXAMINATION: Vital signs: see RN note ECO General Appearance: The patient is a well-developed, well-nourished female, sitting, in no acute distress. HEENT: normocephalic, atraumatic. Mucus membranes moist. +Hoarseness Lungs: Breathing comfortably at rest without wheeze Abdomen: Non-distended Skin: warm, dry, no rashes or lesions Neurologic: Patient awake and alert, responds to questions appropriately ASSESSMENT & PLAN: She returns today for CT simulation. I reviewed with her the steps involved in the CT simulation today. We also discussed the logistics involved with radiation treatment planning. We reviewed the anticipated acute and late effects of treatment. Written informed consent was signed in clinic today. She knows to contact me with questions or concerns prior to the return visit. Pain score 0/10, so no change to pain mgmt. Kai Tellez MD
[2023-09-30 10:20] VITALS: BP 124/80; PULSE 82; TEMP 36.2; O2SAT 98
--- NOTE | 2023-09-30 10:22 | WPDRADIATPRO ---
Radiation Procedure Note - Date/Time Date/Time: 09/30/23 10:22 - Summary Summary: Procedure Date: 09/30/[address] SIMULATION PROCEDURE PURPOSE: The patient is undergoing a virtual CT simulation for external beam radiation treatment planning. Today?s CT dataset will be utilized for intensity modulated treatment planning (IMRT). TREATMENT SITE(S): Glottic Larynx NUMBER OF AREAS OR WOODARD: One treatment area was simulated today. NUMBER OF PORTS: IMRT using multiple static gantry angles, arcs, or helical tomotherapy will be needed to cover the treatment volume and adequately protect nearby critical normal tissues. The number of ports will be determined during the treatment planning process. EQUIPMENT USED: Simulation was performed on the department?s dedicated CT simulator. IMMOBILIZATION: An aquaplast face mask was fabricated to immobilize the patient?s head and neck during treatment. CONTRAST MEDIA: The use of contrast was not required for this simulation EXTERNAL MARKERS: No external markers were used TATTOOS: Positioning tattoos were not required. Three-point setup was marked on the Aquaplast mask. BLOCKING: An intensity map generated by multiple MLC-shaped beamlets of complex design will be constructed as part of an IMRT treatment plan. COMPENSATING FILTER / WEDGE: None ISODOSE PLAN: An IMRT treatment plan will be performed to precisely deliver a specified dose to the treatment volume with narrow margins and to protect adjacent critical normal tissues from receiving excessive radiation exposure. SCHEDULING Prior to delivering the first radiation fraction, a simulation will be performed on the linear accelerator utilizing electronic portal imaging to verify the isocenter location and block design. DAILY IMAGE GUIDANCE: Utilizing the integrated CT scanner on the Tomotherapy or Synergy-S treatment machine, CT images through the treatment volume will be acquired daily prior to treatment to ensure precise patient positioning, thus allowing treatment of the tumor with narrow margins. MEDICAL NECESSITY FOR IMRT TREATMENT PANNING: The target volume is in close proximity to critical normal structures (parotid glands, spinal cord, brainstem) and must be treated with narrow margins to adequately protect immediately adjacent structures in order to reduce the probability of radiation toxicity. In addition, the target volume is concave and critical normal tissues (parotid glands) are around that concavity. Sparing the parotid glands is necessary to reduce the risk of severe permanent xerostomia. IMRT is the only treatment modality that can achieve this, as opposed to conventional 3D-treatment planning. MEDICAL NECESSITY FOR IGRT TREATMENT PLANNING: There is inherent patient setup variation that could result in geometric miss of the target volume and/or excessive dose delivery to the parotid glands. IGRT is the only treatment modality that can correct for daily variances in target volume location, further improving the therapeutic ratio over IMRT alone. Kai Tellez MD
--- NOTE | 2023-09-30 10:48 | WPDONCRADTXP ---
Radiation Treatment Plan - Date/Time Date/Time: 09/30/23 10:48 - Summary Summary: RADIATION ONCOLOGY CLINICAL TREATMENT PLAN PATIENT NAME: Denise Kruger PROCEDURE DATE: 09/30/2023 DIAGNOSIS: SCC of the glottic larynx TREATMENT INTENT: Definitive SPECIAL TEST(S) INTERPRETED FOR TUMOR DELINEATION: Diagnostic CT with contrast, PET/CT CHEMOTHERAPY CONSIDERATIONS: None TREATMENT SITE(S): Glottic Larynx NUMBER OF AREAS OR WOODARD: 1 treatment area NUMBER OF TREATMENT PORTS: IMRT, number to be determined during planning process IMMOBILIZATION: Aquaplast mask TREATMENT DEVICES: Custom blocks of complex design TREATMENT MODALITY: External photon beam PLANNED DOSE: 70 Gy to the primary, 35 Fx FRACTIONATION: Daily TECHNIQUE CONTEMPLATED: IMRT MEDICAL NECESSITY FOR IMRT TREATMENT PLANNING: The target volume is in close proximity to critical normal structures (spinal cord, salivary structures, constrictors, brainstem, larynx, optic structures) and must be treated with narrow margins to adequately protect immediately adjacent structures in order to reduce the probability of radiation toxicity. The dose required to deliver to the target volume exceeds the tolerance of these adjacent normal structures, which are so close that IMRT is the only treatment modality that can achieve this, as opposed to conventional 3D-treatment planning. MEDICAL NECESSITY FOR IGRT TREATMENT PLANNING: There is inherent patient setup variation that could result in geometric miss of the target volume and/or excessive dose delivery to the adjacent normal structures. IGRT is the only treatment modality that can correct for daily variances in target volume location, further improving the therapeutic ratio over IMRT alone. Kai Tellez MD
--- NOTE | 2023-10-14 07:59 | WPDRADONCOTV ---
On Treatment Visit - Date/Time of Treatment Date/Time: 10/14/23 07:59 History: RADIATION ONCOLOGY ON-TREATMENT VISIT DATE: 10/14/2023 DIAGNOSIS: 63 y/o female with current 40 pack year smoking history, history of fibromyalgia on disability, who presents with a new diagnosis of a [id number] SCC of the glottic larynx with involvement of the bilateral TVC/FVC and anterior commissure. PET/CT shows no evidence of regional nalini or distant metastases. I plan to treat her with definitive RT alone 70Gy/35Fx using IMRT. SITE: Glottic Larynx DOSE: 200 cGy of planned 7000 cGy (1 of 35 Fx) HISTORY: She reports feeling generally well. EXAM: Well-appearing, NAD. Breathing comfortably on RA ASSESSMENT/PLAN: Tolerating radiotherapy well. Imaging checked. Continue radiation therapy as planned. Discussed baking soda rinses Aquaphor to anterior neck, BID Clean neck w/antibacterial wash BID Lubricity given for dry mouth - already has at baseline. Discussed potential for pain meds, MMW in future Encouraged to optimize nutrition. She is noted to have 0/10 pain in clinic today. Her individualized pain management will therefore consist of no intervention needed as the patient notes no pain of significance. Kai Tellez MD
--- NOTE | 2023-10-14 08:01 | WPDRADIATPRO ---
Radiation Procedure Note - Date/Time Date/Time: 10/14/23 08:01 - Summary Summary: Procedure Date:10/14/23 RADIATION ONCOLOGY VERIFICATION SIMULATION PURPOSE: Denise Kruger initially underwent virtual CT simulation. A simple simulation was performed on the linear accelerator utilizing the integrated CBCT for isocenter verification prior to treatment delivery of the first fraction. EQUIPMENT USED: Simulation was performed on the linear accelerator. PROCEDURE DETAILS: This simulation was performed prior to the first radiation fraction to the glottic larynx. The patient was placed on the treatment couch with her body immobilized using a custom fabricated Aquaplast mask in treatment position and aligned to the 3-point setup [place]. A CBCT was acquired through the treatment area. The CBCT images were fused and aligned to the treatment planning CT image set. I reviewed the CT alignment images and made any necessary adjustments. Couch shifts were calculated in order to bring the patient into precise alignment prior to treatment delivery. ASSESSMENT: The isocenter alignment process was successful. ORDERS: Proceed with treatment as planned. Kai Tellez MD
[2023-10-14 09:41] VITALS: BP 132/88; PULSE 86; TEMP 36.9; O2SAT 98
[2023-10-21 09:25] VITALS: BP 116/76; PULSE 88; TEMP 36.8; O2SAT 98
--- NOTE | 2023-10-21 09:48 | WPDRADONCOTV ---
On Treatment Visit - Date/Time of Treatment Date/Time: 10/21/23 09:48 History: RADIATION ONCOLOGY ON-TREATMENT VISIT DATE: 10/21/2023 DIAGNOSIS: 63 y/o female with current 40 pack year smoking history, history of fibromyalgia on disability, who presents with a new diagnosis of a [id number] SCC of the glottic larynx with involvement of the bilateral TVC/FVC and anterior commissure. PET/CT shows no evidence of regional nalini or distant metastases. I plan to treat her with definitive RT alone 70Gy/35Fx using IMRT. SITE: Glottic Larynx DOSE: 1200 cGy of planned 7000 cGy (6 of 35 Fx) HISTORY: She reports feeling generally well. Hoarseness has improved. No other concerns. EXAM: Well-appearing, NAD. Breathing comfortably on RA. No skin changes to neck. ASSESSMENT/PLAN: Tolerating radiotherapy well. Imaging checked. Continue radiation therapy as planned. Discussed baking soda rinses Aquaphor to anterior neck, BID Clean neck w/antibacterial wash BID Lubricity given for dry mouth - already has at baseline. Discussed potential for pain meds, MMW in future Encouraged to optimize nutrition. She is noted to have 0/10 pain in clinic today. Her individualized pain management will therefore consist of no intervention needed as the patient notes no pain of significance. Kai Tellez MD H&P - Exam - Vital Signs Vital Signs - 24 hr 10/21/23 09:25 Temperature 36.8 C Pulse Rate 88 Blood Pressure 116/76 Pulse Oximetry 98
[2023-10-28 09:01] VITALS: BP 108/66; PULSE 74; TEMP 36.6; O2SAT 98
--- NOTE | 2023-10-28 09:23 | WPDRADONCOTV ---
On Treatment Visit - Date/Time of Treatment Date/Time: 10/28/23 09:23 History: RADIATION ONCOLOGY ON-TREATMENT VISIT DATE: 10/28/2023 DIAGNOSIS: 63 y/o female with current 40 pack year smoking history, history of fibromyalgia on disability, who presents with a new diagnosis of a [id number] SCC of the glottic larynx with involvement of the bilateral TVC/FVC and anterior commissure. PET/CT shows no evidence of regional nalini or distant metastases. I plan to treat her with definitive RT alone 70Gy/35Fx using IMRT. SITE: Glottic Larynx DOSE: 2200 cGy of planned 7000 cGy (11 of 35 Fx) HISTORY: She reports feeling generally well. Hoarseness stable. Noticing more odynophagia and dysphagia. She has started to make some dietary modifications to softer foods. Weight down 1/2 lb. EXAM: Well-appearing, NAD. Breathing comfortably on RA. No skin changes to neck. ASSESSMENT/PLAN: Tolerating radiotherapy well. Imaging checked. Continue radiation therapy as planned. Discussed baking soda rinses Aquaphor to anterior neck, BID Clean neck w/antibacterial wash BID Lubricity given for dry mouth - already has at baseline. Discussed potential for pain meds, MMW in future Will start carafate TID, viscous lidocaine prior to meals. Encouraged to optimize nutrition. She is noted to have 0/10 pain in clinic today. Her individualized pain management will therefore consist of no intervention needed as the patient notes no pain of significance. Kai Tellez MD H&P - Exam - Vital Signs Vital Signs - 24 hr 10/28/23 09:01 Temperature 36.6 C Pulse Rate 74 Blood Pressure 108/66 Pulse Oximetry 98
[2023-11-04 08:59] VITALS: BP 118/78; PULSE 80; TEMP 36.6; O2SAT 98
--- NOTE | 2023-11-04 09:54 | WPDRADONCOTV ---
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 PET/CT shows no evidence of regional nalini or distant metastases. I plan to treat her with definitive RT alone 70Gy/35Fx using IMRT. SITE: Glottic Larynx DOSE: 3200 cGy of planned 7000 cGy (16 of 35 Fx) HISTORY: She reports feeling generally well. Hoarseness stable. Noticing stable odynophagia and dysphagia. She has started to make some dietary modifications to softer foods. Weight down 1/2 lb. She noticed increased throat swelling last week. I gave her a medrol dose maury which helped significantly. EXAM: Well-appearing, NAD. Breathing comfortably on RA. Mild skin changes to neck. ASSESSMENT/PLAN: Tolerating radiotherapy well. Imaging checked. Continue radiation therapy as planned. Completed medrol dose maury. Will start dex 2 mg daily to help with laryngeal edema. Discussed baking soda rinses Aquaphor to anterior neck, BID Clean neck w/antibacterial wash BID Lubricity given for dry mouth - already has at baseline. Discussed potential for pain meds, MMW in future Will start carafate TID, viscous lidocaine prior to meals. Encouraged to optimize nutrition. She is noted to have 0/10 pain in clinic today. Her individualized pain management will therefore consist of no intervention needed as the patient notes no pain of significance. Kai Tellez MD H&P - Exam - Vital Signs Vital Signs - 24 hr 11/04/23 08:59 Temperature 36.6 C Pulse Rate 80 Blood Pressure 118/78 Pulse Oximetry 98
--- NOTE | 2023-11-11 07:56 | P.RADONC_ITS ---
On Treatment Visit - Date/Time of Treatment Date/Time: 11/11/23 07:56 History: RADIATION ONCOLOGY ON-TREATMENT VISIT DATE: 11/11/23 DIAGNOSIS: 63 y/o female with current 40 pack year smoking history, history of fibromyalgia on disability, who presents with a new diagnosis of a [id number] SCC o f the glottic larynx with involvement of the bilateral TVC/FVC and anterior commissure. PET/CT shows no evidence of regional nalini or distant metastases. I plan to treat her with definitive RT alone 70Gy/35Fx using IMRT. SITE: Glottic Larynx DOSE: 4000 cGy of planned 7000 cGy (20 of 35 Fx) HISTORY: She reports feeling generally well. Hoarseness stable. Noticing stable odynophagia and dysphagia. She has started to make some dietary modifications to softer foods. Weight stable. Taking dex 2 mg BID. EXAM: Well-appearing, NAD. Breathing comfortably on RA. Mild skin changes to neck. ASSESSMENT/PLAN: Tolerating radiotherapy well. Imaging checked. Continue radiation therapy as planned. Dex 2 mg BID to help with laryngeal edema. Discussed baking soda rinses Aquaphor to anterior neck, BID Clean neck w/antibacterial wash BID Lubricity given for dry mouth - already has at baseline. Discussed potential for pain meds, MMW in future She has a Rx for carafate TID, viscous lidocaine prior to meals. Encouraged to optimize nutrition. She is noted to have 0/10 pain in clinic today. Her individualized pain management will therefore consist of no intervention needed as the patient notes no pain of significance. Kai Tellez MD
[2023-11-11 08:31] VITALS: BP 111/70; PULSE 88; TEMP 36.8; O2SAT 98
[2023-11-18 08:42] VITALS: BP 128/76; PULSE 64; TEMP 36.3; O2SAT 97
--- NOTE | 2023-11-18 09:34 | WPDRADONCOTV ---
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 PET/CT shows no evidence of regional nalini or distant metastases. I plan to treat her with definitive RT alone 70Gy/35Fx using IMRT. SITE: Glottic Larynx DOSE: 5000 cGy of planned 7000 cGy (25 of 35 Fx) HISTORY: She reports feeling generally well. Hoarseness has mildly increased. Noticing mild odynophagia and dysphagia. She has started to make some dietary modifications to softer foods, able to maintain weight. Taking dex 2 mg BID to help with increased laryngeal edema that developed during treatment. No significant skin discomfort to anterior neck. EXAM: Well-appearing, NAD. Breathing comfortably on RA. Mild skin changes to anterior neck. ASSESSMENT/PLAN: Tolerating radiotherapy well. Imaging checked. Continue radiation therapy as planned. Continue Dex 2 mg BID to help with laryngeal edema. Daily PPI. Discussed baking soda rinses Aquaphor to anterior neck, BID Clean neck w/antibacterial wash BID Lubricity given for dry mouth - already has at baseline. She has a Rx for carafate TID, viscous lidocaine prior to meals - not currently requiring, but can use if needed. Encouraged to optimize nutrition. She is aware I am out of the office next week. She will be seen by my partner Dr. Zepeda. She is noted to have 0/10 pain in clinic today. Her individualized pain management will therefore consist of no intervention needed as the patient notes no pain of significance. Kai Tellez MD H&P - Exam - Vital Signs Vital Signs - 24 hr 11/18/23 08:42 Temperature 36.3 C L Pulse Rate 64 Blood Pressure 128/76 Pulse Oximetry 97
[2023-11-21 08:37] VITALS: BP 114/80; PULSE 70; TEMP 36.7; O2SAT 97
--- NOTE | 2023-11-21 08:53 | WPDRADONCOTV ---
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 PET/CT shows no evidence of regional nalini or distant metastases. I plan to treat her with definitive RT alone 70Gy/35Fx using IMRT. SITE: Glottic Larynx DOSE: 5600 cGy of planned 7000 cGy (28 of 35 Fx) HISTORY: She reports feeling generally well. Hoarseness has mildly increased. Noticing mild odynophagia and dysphagia. She has started to make some dietary modifications to softer foods, able to maintain weight. Taking dex 2 mg BID to help with increased laryngeal edema that developed during treatment. Taking daily PPI. No significant skin discomfort to anterior neck, using aquaphor BID. EXAM: Well-appearing, NAD. Breathing comfortably on RA. Mild skin changes to anterior neck. ASSESSMENT/PLAN: Tolerating radiotherapy well. Imaging checked. Continue radiation therapy as planned. Continue Dex 2 mg BID to help with laryngeal edema. Daily PPI. Discussed baking soda rinses Aquaphor to anterior neck, BID Clean neck w/antibacterial wash BID Lubricity given for dry mouth - already has at baseline. She has a Rx for carafate TID, viscous lidocaine prior to meals - not currently requiring, but can use if needed. Encouraged to optimize nutrition. She is aware I am out of the office next week. She will be seen by my partner Dr. eZpeda. She is noted to have 0/10 pain in clinic today. Her individualized pain management will therefore consist of no intervention needed as the patient notes no pain of significance. Kai Tellez MD H&P - Exam - Vital Signs Vital Signs - 24 hr 11/21/23 08:37 Temperature 36.7 C Pulse Rate 70 Blood Pressure 114/80 Pulse Oximetry 97
[2023-12-02 08:38] VITALS: PULSE 64; RESP 18; TEMP 36.8; O2SAT 96
--- NOTE | 2023-12-02 08:46 | WPDRADONCOTV ---
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 PET/CT shows no evidence of regional nalini or distant metastases. I plan to treat her with definitive RT alone 70Gy/35Fx using IMRT. SITE: Glottic Larynx DOSE: 7000 cGy of planned 7000 cGy (35 of 35 Fx) HISTORY: She reports feeling generally well. Hoarseness has increased. Noticing moderate odynophagia and dysphagia. She has started to make some dietary modifications to softer foods. Down 2 lb since last week. Using carafate + MMW. Taking dex 2 mg BID to help with increased laryngeal edema that developed during treatment. Taking daily PPI. No significant skin discomfort to anterior neck, using aquaphor BID. EXAM: Well-appearing, NAD. Breathing comfortably on RA. Mild skin changes to anterior neck. ASSESSMENT/PLAN: Tolerating radiotherapy well. Imaging checked. Continue radiation therapy as planned. Continue Dex 2 mg BID to help with laryngeal edema. Daily PPI. Discussed baking soda rinses Aquaphor to anterior neck, BID Clean neck w/antibacterial wash BID Lubricity given for dry mouth - already has at baseline. carafate TID, viscous lidocaine prior to meals Encouraged to optimize nutrition. Plan to RTC in 4 wk. She is noted to have 0/10 pain in clinic today. Her individualized pain management will therefore consist of no intervention needed as the patient notes no pain of significance. Kai Tellez MD H&P - Exam - Vital Signs Vital Signs - 24 hr 12/02/23 08:38 Temperature 36.8 C Pulse Rate 64 Respiratory Rate 18 Pulse Oximetry 96
--- NOTE | 2023-12-02 08:47 | P.RADTS_ITS ---
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 PET/CT shows no evidence of regional nalini or distant metastases. I plan to treat her with definitive RT alone 70Gy/35Fx using IMRT Treatment Delivered: She received a total of 70 Gy delivered in 200 cGy fractions using photon IMRT. All treatment was delivered with the patient supine immobilized in an Aquaplast mask with opposed lateral photon beams. All treatment was delivered between 10/14/23 and 12/02/23. Tolerance: She tolerated therapy generally well. She developed the expected treatment- related acute toxicity. She developed fatigue, throat and neck irritation, erythema of the skin, and mild odynophagia. Hoarseness persisted. She was on dex 2 mg BID during treatment to help with laryngeal edema. Disposition: She will return for a follow-up visit in 4 weeks. She will see ENT 3 mo post-RT for a laryngoscope exam. Kai Tellez MD
[2023-12-30 09:33] VITALS: BP 118/74; PULSE 85; TEMP 37.1; O2SAT 97
--- NOTE | 2023-12-30 10:08 | PDRADONCFUV ---
Follow Up Note - Date/Time 12/30/23 10:08 - Interval History She is here for brief follow-up. She completed definitive RT on 12/02/23. Doing much better. She report that her voice has returned over the last 3-4 days. Throat pain has resolved. Swallowing improving. Eating and drinking well. Skin has healed to anterior neck. Still using decadron 1 mg at night. Plan: Setup ENT follow-up for scope exam 3 months post-RT RTC in 3 mo Discussed obtaining a post-treatment PET/CT 3-6 month post-RT. Will order after her ENT visit. Kai Tellez MD H&P - Exam - Vital Signs Vital Signs - 24 hr 12/30/23 09:33 Temperature 37.1 C Pulse Rate 85 Blood Pressure 118/74 Pulse Oximetry 97
[2024-06-01 09:29] VITALS: BP 107/69; PULSE 79; RESP 12; TEMP 37.2; O2SAT 96
--- NOTE | 2024-06-01 11:01 | P.RADPN_ITS ---
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 PET/CT shows no evidence of regional nalini or distant metastases. I treated her with definitive RT alone 70Gy/35Fx using IMRT completed 12/02/23. HISTORY & NARRATIVE: Denise Kruger is a 64 y.o. female with a history as above. She completed a course of radiation on 12/02/23 and returns today for her first follow-up since completion of radiation. Since completing radiation, Ms. Kruger reports feeling generally well. Here with her significant other. She is able to eat any foods she would like. No ear pain, headache, odynophagia, or dysphagia, no hoarseness. No neck pain. Voice quality has improved, but she still has some residual intermittent hoarseness. She cannot sing just yet. She has some edema in her central/anterior neck. She saw Dr. Call from [facility] ENT in 05/2024. Scope exam showed JADEN and complete response to RT. There was some laryngeal edema. She was given recs on exercise for lymphedema to neck. Plan for repeat in 3 mo. Continues to smoke with no interest in quitting. PHYSICAL EXAMINATION: Vital signs: see RN General: Appears healthy Respiratory: Breathes comfortably at rest without stridor or cough Cognition: Acceptable understanding of the essential elements of the medical situation. Neuro: Cranial nerves II-XII are grossly intact. Eyes: EOMI, no conjunctival infection Musc: Walks with a normal gait with normal range of motion of all extremity joints. Skin: Skin of the head and neck has good turgor with no evidence of infection, tumor invasion, or breakdown. There are no surgical scars to suggest prior head and neck surgery. Mild edema in central neck region. Speech: 100% intelligible, good volume. Mild hoarseness present. RADIOLOGY REVIEW: No new imaging for review ASSESSMENT & PLAN: Denise Kruger is a 64 y.o. female with a history as above. She is now 6 mo status post completion of radiation and is doing well without clinical evidence of disease. She will do lymphedema exercises. There is no role for routine CT surveillance of her glottic cancer. Her cancer was PET-avid, but was not clearly visible on CT neck imaging prior to treatment. Close surveillance with direct visualization on laryngoscope exam is the best way to evaluate this region. Dr. Call plans to see her in 3 mo and I stressed the importance of close surveillance. Given her tobacco history and development of 1 tobacco associated cancer, I do recommend annual LDCT for lung cancer screening. She is aware that Dr. Sin is taking over the practice at [facility]. She will follow with Dr. Call at [facility] and follow-up in our office on a PRN basis. She knows to contact me with questions or concerns. Ms. Kruger is noted to have 0/10 pain in clinic today. Her individualized pain management will therefore consist of no intervention needed as the patient notes no pain of significance. Kai Tellez MD I spent 30 minutes on visit today, including chart review, time with patient, documentation, and coordination of care. H&P - Exam Vital Signs: Vital Signs - 24 hr 06/01/24 09:29 Temperature 37.2 C Pulse Rate 79 Respiratory Rate 12 Blood Pressure 107/69 Pulse Oximetry 96
== END 2024-06-08 14:01 ==
LOC: AMCRADONC 09:30
PROVIDERS: PCP Family Medicine; Visit Provider Radiology Radiation Oncology
DX: C32.0 Malignant neoplasm of glottis (principal); Z08 Encounter for follow-up examination after completed treatment for malignant neoplasm; F41.9 Anxiety disorder, unspecified; J45.909 Unspecified asthma, uncomplicated; K50.90 Crohn's disease, unspecified, without complications; M79.7 Fibromyalgia; Z86.711 Personal history of pulmonary embolism; Z80.1 Family history of malignant neoplasm of trachea, bronchus and lung; Z87.891 Personal history of nicotine dependence; Z98.890 Other specified postprocedural states; Z80.7 Family history of other malignant neoplasms of lymphoid, hematopoietic and related tissues
CPT/HCPCS: 77280; 77290; 77300; 77301; 77334; 77336; 77338; 77386; 99212; G0463

== ENCOUNTER 2024-08-06 08:52 | Outpatient (CLI) | payer MEDICARE, MEDICAID, SELFPAY ==
--- OUTSIDE RECORDS SUMMARY | 2024-08-06 08:59 | XMS_ITS | Clinical Summary ---
Author Organization [facility] [employer] Address [address] [place] [address] Care Team Providers Care Corporate Lawyer Name Role Phone Unavailable Primary Care Provider Unavailabl e Source Comments [facility] [employer],non-owned Affiliates and Associated Physician Practices is amultiple site organization consisting of ambulatory clinics and hospital sitesin [place], [place], [place] and [place]. This disclosure is being madepursuant to the Care Everywhere program and may not contain all information available regarding this patient. Last updated 18.[facility] [employer] Allergies Active Allergy Reactions Criticality Noted Date Comments Contrast-Iodinated Agents For Ct/Other Unknown Low 07/24/2023 sneezing Lactose Unknown 07/14/2012 Penicillins Urticaria Medium 03/10/2018 internal Ampicillin Urticaria Medium 03/10/2018 Medications * Be aware that medications may not be up to date on this document. Alwaysverify current medications with the patient. Medication Sig Dispensed Refills Start Date End Date Status HYDROcodone-acetamino phen (NORCO) 10-325 MG tablet Take 1 (one) tablet by mouth every 4 hours as needed for Pain Active albuterol HFA (PROVENTIL;VENTOLIN;P ROAIR) 108 (90 BASE) MCG/ACT inhalerIndications:Up per respiratory tract infection, unspecified type Inhale 2 puffs by mouth every 6 hours as needed 1 Inhaler 03/10/2018 Active acyclovir (Zovirax) 400 MG tablet Take 1 (one) tablet by mouth as needed Active fluticasone propionate (Flonase) 50 MCG/ACT nasal spray [place] 1 (one) spray into each nostril once daily 07/15/2023 Active omeprazole (PriLOSEC) 20 MG capsule Take 1 (one) capsule by mouth as directed 07/15/2023 Active albuterol (Proventil;Ventolin) (2.5 MG/3ML) 0.083% nebulizer solution Inhale 2.5 (two and one-half) mg by mouth as directed 12/05/2022 Active Melatonin-Pyridoxine (MELATIN PO) Take 5 mg by mouth at bedtime Active ALPRAZolam (Xanax) 0.25 MG tablet Take 1 (one) tablet by mouth once daily 09/04/2023 Active methylPREDNISolone (Medrol Dosepak) 4 MG tablet Take 1 (one) tablet by mouth as directed 08/15/2023 Active naproxen (Naprosyn) 500 MG tablet Take 1 (one) tablet by mouth 2 times daily as needed for Pain 08/22/2023 Active predniSONE (Deltasone) 20 MG tablet Take 2 (two) tablets by mouth once daily 08/20/2023 Active Active Problems No known active problems Encounters Date Type Department Care Team Description 05/27/2024 3:45 PM REAL ESTATE AGENT Office Visit [facility] [place] [id number] Greg Call MD Squamous cell carcinoma of overlapping sites of larynx (Primary Dx); Dysphonia 05/27/2024 Travel from Last 3 Months Immunizations Name Administration Dates Next Due Covid datapine primary monoval ent 12+ yr 0.3mL Purple cap 03/27/2021,08/24/2020,07/27/2020 Family History Medical History Relation Name Comments Cancer - Lung Mother Relation Name Status Comments Mother Social History Tobacco Use Types Packs/Day Years Used Date Smoking Tobacco: Every Day Cigarettes 0.5 40 Smokeless Tobacco: Never Tobacco Cessation:Ready to Q uit: Not Asked; Counseling Given: Not Answered Alcohol Use Standard Drinks/Week Comments Yes 0 (1 standard drink = 0.6 oz pur e alcohol) occ AUDIT-C Answer Date Recorded Q1: How often do you have a drink containing alc ohol? Monthly or less 08/26/2023 Q2: How many drinks containi ng alcohol do you have on a typical day when you are drinking? 1 or 2 08/26/2023 Q3: How often do you have si x or more drinks on one occasion? Never 08/26/2023 Sex and Gender Information Value Date Recorded Sex Assigned at Not on file Gender Identity Not on file Sexual Orientation Not on file Last Filed Vital Signs Vital Sign Reading Time Taken Comments Blood Pressure 102/70 05/27/2024 3:42 PM REAL ESTATE AGENT Pulse 71 05/27/2024 3:42 PM REAL ESTATE AGENT Temperature 36.6 C (97.8 F) 08/26/2023 8:57 AM CDT Respiratory Rate 15 08/26/2023 9:30 AM CDT Oxygen Saturation 95% 08/26/2023 9:30 AM CDT Inhaled Oxygen Concentration - - Weight 73.4 kg (161 lb 12.8 oz) 05/27/2024 3:42 PM REAL ESTATE AGENT Height 172.7 cm (5' 8 ) 05/27/2024 3:42 PM REAL ESTATE AGENT Body Mass Index 24.6 05/27/2024 3:42 PM REAL ESTATE AGENT Plan of Treatment Upcoming Encounters Date Type Department Care Team (Late st Contact Info) Description 08/26/2024 3:45 PM CDT Office Visit [facility] - ENT [address] [place] [phone] [place] [address] [place] [address] Health Maintenance Due Date Last Done Comments COLOGUARD (AGES 45-75) - COL ON CA SCREENING 1962 COLON MONITORING 1962 COLONOSCOPY - COLON CA SCREENING 1962 CT COLONOGRAPHY - COLON CA SCREENING 1962 Colorectal Cancer Screening 1962 FIT - COLON CA SCREENING 1962 FLEX SIG - COLON CA SCREENING 1962 MAMMOGRAM 1962 MEDICARE AWV 12 MONTHS 1962 PAP SMEAR 1962 HIV SCREENING 1977 HEPATITIS C SCREENING 04/30/1980 DTAP/TDAP/TD VACCINES (1 - Tdap) 1981 PNEUMOCOCCAL VACCINE 50+ (1 of 2 - PCV) 1981 LUNG CANCER SCREENING 2012 ZOSTER VACCINE (1 of 2) 2012 COVID-19 VACCINE (4 2023-2 5 season) 2024 03/27/2021, 08/24/2020, 07/27/2020 INFLUENZA VACCINE (#1) 2024 DEPRESSION SCREENING 2024 LIPID TESTING 12/19/2026 12/19/2021 Respiratory Syncytial Virus (RSV) Vaccine Pt: or over 60 yrs (1 - 1-dose 75+ series) 2037 HEPATITIS B VACCINE Aged Out No longe r eligible based on patient's age to complete this topic HIB VACCINE Aged Out No longer eligi ble based on patient's age to complete this topic HPV VACCINE Aged Out No longer eligi ble based on patient's age to complete this topic MENINGOCOCCAL (Group B) VACCINE SHARED DECISION-MAKING Aged Out No longer eligible based on patient's age to complete this topic MENINGOCOCCAL GROUPS A/C/Y/W VACCINE Aged Out No longer eligible b ased on patient's age to complete this topic
--- OUTSIDE RECORDS SUMMARY | 2024-08-06 08:59 | XMS_ITS | Data Portability ---
Author Organization [place] [facility], Main Office Address [address] [place] [address] Care Team Providers Care Exercise Physiologist Name Role Phone GISELLE HATCH Primary Care Provider GISELLE HATCH Referring Provider [phone] Assessment Encounter Date Assessment Date Assessment LastModified by Organization Details LastModified Time 02/04/2024 02/04/2024 63-year-old female presents for evaluation of her left hand. She reports a history of pain for about 5 months which began when she is opening jars. Pain is located at the base of the thumb. She has tried naproxen and prednisone which helped somewhat and also got a Orthoplast splint for the thumb. She tried using that for 2 months, in addition to 2 months in a soft wrap, without significant improvement. She still reports 7/10 pain, difficulty using her hand. She has a history of fibromyalgia, currently on hydrocodone 10 mg 4 times a day. She is right-hand dominant. She is retired, on disability for her fibromyalgia. Review of systems per patient questionnaire Physical exam: She has some soreness over the thumb CMC joint, negative grind. She points to pain over the thenar eminence and says the bad pain is not reproducible today. She has negative Padmaja's. No tenderness palpation elsewhere around the hand and wrist. Sensation intact to light touch, 2+ radial pulse. X-rays of the hand were reviewed, demonstrating no acute bony abnormality. 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 There is also possibility this is coming from her fibromyalgia. We will try treatment with anti-inflammator ies as she has previously had good results with prednisone and naproxen. We gave her order for meloxicam and she can also use topical Voltaren. We will also get her a thumb spica brace as her previous Orthoplast splint does not appear to be immobilizing the thumb. We will have her follow-up in 2 months as needed, if she has persistent symptoms. May consider doing a thumb CMC injection. [email or web address] Not available 02/04/2024 17:42:22 Plan of Treatment Reminders Order Date Submit Date Provider Last Modified By Organization Details Last Modified Time Details Appointments None recorded . Lab None recorded . Referral None recorded . Procedures None recorded . Surgeries None recorded . Imaging XR, hand, 3 or more view 02/04/20 [facility] [place], [address], [place], [address], 07:52:59 Medication Orders Mobic 15 mg tablet 02/04/20 [email or web address] [facility], [address] [place] [address], [address], 21:15:03 Patient TargetsNo targets recorded. Patient InstructionsNo instructions recorded. Reason for Referral None Reported. Results Created Date Observation Date Name Description Value Unit Range Abnormal Flag Note LastModifiedBy Organization Detail LastModifiedTime 02/03/2008/22/2023 XR, hand, 3 or more view No observ ation record ed. [email or web address] Not Available 2023 15:10:02 02/04/20 XR, hand, 3 or more view No observ ation record ed. [email or web address] [facility] [place] [address], [place], [address], 02/04/2024 14:27:29 Result Notes None recorded. Problems Name Problem SNOMED Code Status Onset Date Resolution Date Notes Provider Name and Address Organization Details Recorded Time Pain in right hand 224235388738239 Active 2023 LIZBET Ortiz, [facility] 14:26:52 Pain of left hand 569805003946605 [facility]:27[facility]19 Problem Notes None recorded. Procedures Surgical History Date Name Laterality Status Provider Name and Address Organization Details Recorded Time Breast Implants completed LIZBET Ortiz [facility] 02/04/2024 14:22:59 Imaging Results Imaging Date Name Status LastModified by Organiz ation Details LastModified Time 08/22/2023 XR, hand, 3 or more view completed [email or web address] Information not available 02/03/2024 15:10:02 02/04/2024 XR, hand, 3 or more view completed [email or web address] [facility] [place] [address], [place], [address], 02/04/2024 14:27:29 Procedure Notes None recorded. Medical Equipment None Reported. Allergies Allergen ID Allergen Name Allergen Category Reaction Reaction Severity Criticality Documentation Date Start Date Code Code System Note Provider Name and Address Organization Details Recorded Time 37062 Product containin g penicilli n (product) medicatio n anaphylax is Not available Not available 02/04/2024 11413 8001 SNOMED Rosario Waltonmalena [facility] 14:19:44 Medications Name Sig Start Date Stop Date Status Note LastModified by Organization Details LastModified Time azithromyci n 250 mg tablet TAKE 2 TABLETS BY MOUTH FOR 1 DAY THEN TAKE 1 TABLET BY MOUTH DAILY 02/03 completed Not Available Not Available Not Available Lidocaine Viscous 2 % mucosal solution TAKE 5 ML BY MOUTH EVERY 6 HOURS NEEDED FOR PAIN. MIX WITH 2-3 OZ OF LIQUID AND SWALLOW IMMEDIATE LY BEFORE A MEAL 02/03 completed Not Available Not Available Not Available sucralfate 100 mg/mL oral suspension TAKE 10 ML BY MOUTH THREE TIMES DAILY 1 HOUR BEFORE A MEAL 02/03 completed Not Available Not Available Not Available meloxicam 15 mg tablet Take 1 tablet every day by oral route. active Not Available Not Available No t Available prednisone 20 mg tablet TAKE 2 TABLETS BY MOUTH DAILY FOR 5 DAYS 02/03 completed Not Available Not Available Not Available acyclovir 400 mg tablet active Not Available Not Available Not Available hydrocodone 10 mg-acetamin ophen 325 mg tablet active Not Available Not Available No t Available omeprazole 40 mg capsule,del ayed release 02/03 completed Not Available Not Available Not Available alprazolam 0.25 mg tablet active Not Available Not Available Not Available ciprofloxac in 0.3 % eye drops active Not Available Not Available No t Available benzonatate 100 mg capsule TAKE 1 CAPSULE BY MOUTH THREE TIMES DAILY FOR 10 DAYS 02/03 completed Not Available Not Available Not Available dexamethaso ne 2 mg tablet 02/03 completed Not Available Not Available Not Available omeprazole 20 mg capsule,del ayed release active Not Available Not Available Not Available methylpredn isolone 4 mg tablets in a dose pack FOLLOW PACKAGE DIRECTION S 02/03 completed Not Available Not Available Not Available albuterol sulfate HFA 90 mcg/actuati on aerosol inhaler active Not Available Not Available Not Available fluticasone propionate 50 mcg/actuati on nasal spray,suspe nsion active Not Available Not Available Not Available naproxen 500 mg tablet 02/03 completed Not Available Not Available Not Available Paxlovid 300 mg (150 mg x 2)-100 mg tablets in a dose pack TAKE 1 (ORAL) PER PACKAGE DIRECTION S 02/03 completed Not Available Not Available Not Available Vitals Date Recorded Body height Body mass index (BMI) Body weight Pain severity - 0-10 verbal numeric rating [Score] - Reported Provider Name and Address Organization Details Last Updated DateTime 02/04/2024 172.72 cm 23.7 kg/m2 34273.41 g 7 LIZBET Ortiz [facility] 02/04/2024 14:19:19 Social History Question Answer Notes LastModified by Organizat ion Details LastModified Time Tobacco Smoking Status Former Smoker LIZBET Ortiz [facility], [email or web address] 02/04/2024 14:22:24 What Is Your Level Of Alcohol Consumption? Occasional [email or web address] Information not available 02/04/2024 What Was The Date Of Your Most Recent Tobacco Screening? 02/04/2024 [email or web address] Information not available 02/04/2024 Sex: Unknown Functional Status None recorded. Mental Status None recorded. Family History Relationship Description Onset Age of this Age Resolved Age Notes LastModified by Organization Details LastModified Time Mother Family history of malignant neoplasm Not available 2023 14:21:49 Father Hypertensive disorder [email or web address] Not available 2023 14:21:58 Medical History Condition Response ARTHRITIS Y CANCER: SPECIFY Y BLOOD CLOTS Y ANEMIA/BLOOD DISORDER Y Gynecological HistoryNo gynecological history recorded. Obstetrics History GPAL:G 0 P 0 0 0 0 Past Encounters Encounter ID Performer Location Encounter Start Date Encounter Closed Date Diagnosis/Indication Diagnosis SNOMED-CT Code Diagnosis ICD10 Code Diagnosis Note [id number] Nish Seth MD [facility] [place] [address] [place] [address] 02/04/2024 14:02:34 02/04/2024 15:44:39 Pain in right hand [id number] 21874 M79.641 Pain of left hand 858291 7970 23318 M79.642 Health Concerns Section Related Observation LastModified by Organization Detai ls LastModified Time None Recorded Concern Status LastModified by Organization Details LastModified Time None Recorded Advance Directives Directive None Recorded Payers Encounter Date Sequence Insurance Name Policy Number Policy Gross Covered Member ID Gross Member ID Guarantor Name 02/04/2024 1 [place] Denise Kruger [id number] Denise Kruger 02/04/2024 2 [place] Denise Kruger [id number] Denise Kruger OBGyn Episode No OBEpisode recorded.
--- OUTSIDE RECORDS SUMMARY | 2024-08-06 09:00 | XMS_ITS | Continuity of Care Document ---
Author Organization [facility] Address [address] [place] [address] Phone Care Team Providers Care Bending Machine Operator Name Role Phone Conversion MD, Doctor Unavailable Unavailabl e Allergies, Adverse Reactions, Alerts Substance Reaction Status Criticality Penicillins Other Active No Information penicillin G Other Active No Information Medications Medication Instructions Dosage Effective Dates (start - stop) Status Comments ALPRAZOLAM 0.5 MG TABLET 0 DIRECTE - Active take 1/2 to 1 tab TID prn anxiety or panic attack LEXAPRO 10 MG TABLET 1 QD-daily - Active TRAZODONE HCL 50MG TABS 1 QHS - Active ALBUTEROL 90MCG PUFFS 2 QID - Active ALPRAZOLAM 0.5 MG TABLET 0 DIRECTE - No Longer Active take 1/2 to 1 tab TID prn anxiety or panic attack ALPRAZOLAM 0.5 MG TABLET 0 DIRECTE - No Longer Active take 1/2 to 1 tab TID prn anxiety or panic attack ALPRAZOLAM 0.5 MG TABLET 0 DIRECTE - No Longer Active take 1/2 to 1 tab TID prn anxiety or panic attack ALPRAZOLAM 0.5 MG TABLET 1 AT BEDTIME - No Longer Active take 1/2 to 1 tab TID prn anxiety or panic attack ALPRAZOLAM 0.5 MG TABLET 1 AT BEDTIME - No Longer Active take 1/2 to 1 tab TID prn anxiety or panic attack DIFLUCAN 150MG TABS 1 DIRECTE - No Longer Active take 1 then repeat dose in 4 days ALPRAZOLAM 0.5 MG TABLET 0 DIRECTE - No Longer Active take 1/2 to 1 tab TID prn anxiety or panic attack CIPRO 250MG TABS 1 BID - No Longer Active LEVAQUIN 250MG TABS 1 QD-daily - No Longer Active ALPRAZOLAM 0.5 MG TABLET 0 DIRECTE - No Longer Active take 1/2 to 1 tab TID prn anxiety or panic attack LEXAPRO 10MG TABS 1 QD No Longer Active COUMADIN 5 MG TABLET 0 DIRECTE - No Longer Active current dose 3 tablets to = 15 mg M,W,F,Sat 2 tablets other days to = 10 mg COUMADIN 5 MG TABLET 0 DIRECTE - No Longer Active current dose 3 tablets to = 15 mg M,W,F,Sat 2 tablets other days to = 10 mg FLUOXETINE HCL 10MG CAPS 1 QD - No Longer Active ALPRAZOLAM 0.5MG TABS 0 DIRECTE - No Longer Active take 0.5 to 1 tab TID prn anxiety or panic attack COUMADIN 5MG TABS 0 DIRECTE No Longer Active current dose 3 tablets to = 15 mg M,W,F 2 tablets other days to = 10 mg SINGULAIR 10MG TABS 1 QPM - No Longer Active Advance Directives Directive Yes / No Effective Date File Name No Information Encounters Encounter Description Practice Location Reason(s) For Visit Diagnoses Date Provider Providers Copied on Encounter PATRICK Chávez [address], [place], [place], [address] , [place] tel:[phone] Conversion Department No Information 1 Conversion Doctor. Formerly [facility] Cathleen [facility], [place], [address], [place]. [facility], [address], [place], [place], [address] , [place] tel: [phone] Conversion Department ASTHMA NOSMYALGIA AND MYOSITIS NOSANXIETY STATE NOSHX-JIM THROMBOSIS/EMBOL S 7 Conversion Doctor. [address] [facility], [place], [address], [place]. [facility], [address], [place], [place], [address] , [place] tel: [phone] Conversion Department RECURR DEPR PSYCHOS-MOD 7 [facility]. [address], [address], [place], [place], [address], [place]. tel:[phone] [facility], [address], [place], [place], [address] , [place] tel: [phone] Conversion Department PULM EMBOL/INFARCT NECDEPRESSIVE DISORDER NEC 7 Conversion Doctor. [address] [facility] [address], [place], [address], [place]. [facility], [address], [place], [place], [address] , tel: [phone] Conversion Department URIN TRACT INFECTION NOSCANDIDAL VULVOVAGINITIS 6 [facility] Hilda. [address], [address], [place], [place], [address], [place]. tel:[phone] [facility], [address], [place], [place], [address] , [place] tel: [phone] Conversion Department INITIATE CONTRACEPT NEC 6 Conversion Doctor. [address] [facility] [address], [place], [address], [place]. [facility], [address], [place], [place], [address] , [place] tel: [phone] Conversion Department LONG-TERM USE ANTICOAGUL 6 Conversion Doctor. [address] [place], [address], [place]. [facility], [address], [place], [place], [address] , tel: [phone] Conversion Department UN[facility] BEHAV RENNY SKIN 6 Conversion Doctor. [address] [facility], [place], [address], [place]. [facility], [address], [place], [place], [address] , [place] tel: [phone] Conversion Department MALAISE AND FATIGUE NEC 1-200 6 Conversion Doctor. [address] [place], [address], [place]. [facility], [address], [place], [place], [address] , [place] tel: [phone] Conversion Department RESPIRATORY ABNORM NECOTHER LUNG DISEASE NEC 0 7-200 6 Conversion Doctor. [address] [place], [address], [place]. [facility], [address], [place], [place], [address] , [place] tel: [phone] Conversion Department DYSURIA 8-200 6 Conversion Doctor. [address] [place], [address], [place]. [facility], [address], [place], [place], [address] , tel: [phone] Conversion Department BENIGN RENNY BRONCHUS/LUNGCON STIPATION NEC 9-200 6 Conversion Doctor. [address] [place], [address], [place]. [facility], [address], [place], [place], [address] , [place] tel: [phone] [facility] WBC DISEASE NECLOCAL SUPRFICIAL SWELLNG 4-200 6 Conversion Doctor. [address] [place], [address], [place]. [facility], [address], [place], [place], [address] , [place] tel: [phone] Conversion Department CHEST PAIN NEC 8-200 6 Conversion Doctor. [address] [place], [address], [place]. [facility], [address], [place], [place], [address] , [place] tel: [phone] Conversion Department SCREEN-THYROID DISORDERROUTINE MEDICAL EXAMSCREEN-CARDI OVASC NEC 0-200 6 Conversion Doctor. [address] [place], [address], [place]. [facility], [address], [place], [place], [address] , [place] tel: [phone] Conversion Department No Information Konstantin-0 7-200 6 Edil Tamayo. [address], [place], [address], [place]. tel:[phone] [employer] [address], [place], [place], [address] , tel: [phone] Conversion Department No Information Dec-3 0-200 5 Edil Tamayo. [address], [place], [address], . tel:[phone] [employer] [address], [place], [place], [address] , tel: [phone] Conversion Department ALLERGY, UNSPECIFIED Dec-3 0-200 5 Conversion Doctor. [address] [place] [address], [address], . Family History Family Member Type Diagnosis Age At Onset No Information Payers Payer name Insurance type Covered alliance party ID Authoriza tion(s) No Information Social History Type Description Quantity Date Captured Comments Sex Female Smoking Status No Information Chief Complaint And Reason For Visit No Information Reason For Referral Reason For Referral No Information History Of Present Illness Encounter Date Complaint History Of Prese nt Illness No Information Functional Status Date Functional Assessmen t No Information Medications Administered Medication Instructions Dosage Effective Dates (start - stop) Status Comments ALPRAZOLAM 0.5 MG TABLET 0 DIRECTE - No Longer Active take 1/2 to 1 tab TID prn anxiety or panic attack ALPRAZOLAM 0.5 MG TABLET 0 DIRECTE - No Longer Active take 1/2 to 1 tab TID prn anxiety or panic attack ALPRAZOLAM 0.5 MG TABLET 0 DIRECTE - No Longer Active take 1/2 to 1 tab TID prn anxiety or panic attack LEVAQUIN 250MG TABS 1 QD-daily - No Longer Active Instructions Date Instruction Additional Infor mation No Information Assessments Type Assessment Date No Information Patient Care Teams Name Effective Dates (start - stop) Status Members No Information
--- OUTSIDE RECORDS SUMMARY | 2024-08-06 09:00 | XMS_ITS | Clinical Summary ---
Author Organization [facility] Address [address] [place] [address] Care Team Providers Care Code Official Name Role Phone Fermín Langford MD Primary Care Provider [phone] Allergies Active Allergy Reactions Criticality Noted Date Comments Lactose Unknown 07/14/2012 Penicillins Unknown,Hives Medium 07/14/2012 internal Medications acyclovir 400 MG tablet Active albuterol sulfate HFA 108 (90 Base) MCG/ACT inhaler Inhale 2 puffs into the lungs every 6 (six) hours as needed. 07/14/2012 Active hydrocodone-acet aminophen 10-325 MG tablet 02/09/2019 Active Baclofen 5 MG TabIndications:O ther muscle spasm Take 5 mg by mouth 2 (two) times daily as needed. 60 tablet 03/05/2019 Active Active Problems Problem Noted Date Diagnosed Date Closed fracture of left ankle, sequela 0 Foraminal stenosis of cervical region 02/26/2019 Degenerative disc disease, cervical 02/26/2019 Facet arthropathy, cervical 02/26/2019 Spinal stenosis of cervical region 02/26/2019 Asthma (HHS/HCC) 07/14/2012 Family History Medical History Relation Comments bloot clots Brother Relation Status Comments Brother Social History Tobacco Use Types Packs/Day Years Used Date Smoking Tobacco: Every Day Smokeless Tobacco: Never Alcohol Use Standard Drinks/Week Comments Yes 0 (1 standard drink = 0.6 oz pur e alcohol) Comments No Sex and Gender Information Value Date Recorded Sex Assigned at Not on file Legal Sex Female 9:36 PM CDT Gender Identity Not on file Sexual Orientation Not on file Last Filed Vital Signs Vital Sign Reading Time Taken Comments Blood Pressure 97/66 07/09/2019 10:01 AM LOOP TACKER Pulse 93 07/09/2019 10:01 AM LOOP TACKER Temperature 36.4 C (97.6 F) 07/09/2019 10:01 AM LOOP TACKER Respiratory Rate 16 06/12/2019 10:15 AM LOOP TACKER Oxygen Saturation 95% 07/09/2019 10:01 AM LOOP TACKER Inhaled Oxygen Concentration - - Weight 74.4 kg (164 lb) 07/09/2019 10:01 AM LOOP TACKER Height 172.7 cm (5' 8 ) 07/09/2019 10:01 AM LOOP TACKER Body Mass Index 24.94 07/09/2019 10:01 AM LOOP TACKER Plan of Treatment Health Maintenance Due Date Last Done Comments Cervical Cancer Screening Pa p Smear (Age 30 to 64) Every 3 Years 1962 Colorectal Cancer Screening Colonoscopy (10 Years) 1962 Annual Physical 1965 Pneumococcal Vaccine: Pediat rics (0 to 5 Years) and At-Risk Patients (6 to 64 Years) (1 of 2 - PCV) 1968 Hepatitis C 1980 DTaP, Tdap and Td Vaccines ( 1 - Tdap) 1981 Cervical Cancer Screening Pa p with HPV Testing (Age 30 to 64) Every 5 Years 1992 Cervical Cancer Screening with HPV 1992 Mammogram Screening 2002 Zoster Vaccines (1 of 2) 2012 RSV Immunization or 60+ Years (1 - Risk 60-74 years 1-dose series) 2022 COVID-19 Vaccine ( - 2023-2 5 season) 2024 Meningococcal B Vaccine Aged Out No l onger eligible based on patient's age to complete this topic Meningococcal Vaccine Aged Out No zhou ashish eligible based on patient's age to complete this topic RSV Immunizations Under 20 Months Aged Out No longer eligible based on patient's age to complete this topic Insurance MEDICARE MEDICAID Care Teams Code Official Relationship Specialty Start Date End Date Fermín Langford MD [address] [place] [place] [address] PCP - General FAMILY PRACTICE 01/14/19
[2024-08-06 09:14] LABS: Basophils Absolute Auto 0.1 K/mm3 (0.0-0.1); Basophils Percent Auto 0.9 % (0.2-1.2); Eosinophils Absolute Auto 0.1 K/mm3 (0-0.3); Hematocrit 41.3 % (37.0-47.0); Hemoglobin 13.2 g/dL (12.0-15.0); Immature Granulocyte Absolute 0.03 K/mm3 (0.00-0.031); Immature Granulocyte Percent A 0.5 % (0-0.5); Lymphocytes Absolute Auto 2.04 K/mm3 (0.9-3.2); Mean Corpuscular Hemoglobin 30.4 pg (26-34); Mean Corpuscular Volume 95.2 fl (80-100); Mean Platelet Volume 11.2 fl (7.4-10.4); Monocytes Absolute Auto 0.7 K/mm3 (0.1-0.6); Neutrophils Absolute Auto 3.7 K/mm3 (1.3-6.7); Neutrophils Percent Auto 55.6 % (45.5-73.1); Platelet Count Result 214 k/mm3 (150-375); Red Blood Count 4.34 M/mm3 (4.2-5.4); Red Cell Distribution Width 13.5 % (11.5-14.5); White Blood Count 6.6 K/mm3 (4.5-10.0)
[2024-08-06 09:30] LABS: Alanine Aminotransferase 15 U/L (6-35); Albumin Level 4.4 g/dL (3.5-5.1); Alkaline Phosphatase 65 U/L (38-126); Anion Gap 5 mmol/L (4-12); Aspartate Amino Transferase 21 U/L (14-36); Bilirubin,Total 0.6 mg/dL (0.2-1.3); Blood Urea Nitrogen 11 mg/dL (7-17); Calcium 9.1 mg/dL (8.4-10.2); Carbon Dioxide 29 mmol/L (22-30); Chloride 104 mmol/L (98-107); Estimated Glomerular Filt Rate > 60; Glucose 89 mg/dL (65-110); Potassium 4.1 mmol/L (3.4-5.0); Sodium 138 mmol/L (137-145)
== END 2024-08-06 08:53 | disposition home or self-care (01) ==
LOC: ANHLAB 08:55
PROVIDERS: PCP Family Medicine; Visit Provider Registered Nurse
DX: C14.0 Malignant neoplasm of pharynx, unspecified (principal); C80.1 Malignant (primary) neoplasm, unspecified
CPT/HCPCS: 36415; 80053; 85025

== ENCOUNTER 2024-09-23 10:16 | Outpatient (CLI) | payer MEDICARE, MEDICAID, SELFPAY ==
--- OUTSIDE RECORDS SUMMARY | 2024-09-23 10:23 | XMS_ITS | Clinical Summary ---
Author Organization [facility] Address [address] [place] [address] Care Team Providers Care Gift Shop Manager Name Role Phone Fermín Langford MD Primary Care Provider [phone] Source Comments [facility],non-owned Affiliates and Associated Physician Practices is amultiple site organization consisting of ambulatory clinics and hospital sitesin [place], [place], [place] and [place]. This disclosure is being madepursuant to the Care Everywhere program and may not contain all information available regarding this patient. Last updated 18.[facility] Allergies Active Allergy Reactions Criticality Noted Date Comments Contrast-Iodinated Agents For Ct/Other Unknown Low 07/24/2023 sneezing Lactose Unknown 07/14/2012 Penicillins Urticaria Medium 03/10/2018 internal Ampicillin Urticaria Medium 03/10/2018 Medications * Be aware that medications may not be up to date on this document. Alwaysverify current medications with the patient. HYDROcodone-acet aminophen (NORCO) 10-325 MG tablet Take 1 (one) tablet by mouth every 4 hours as needed for Pain Active albuterol HFA (PROVENTIL;JONATHAN PAULINO;PROAIR) 108 (90 BASE) MCG/ACT inhalerIndicatio ns:Upper respiratory tract infection, unspecified type Inhale 2 puffs by mouth every 6 hours as needed 1 Inhaler 8 Active acyclovir (Zovirax) 400 MG tablet Take 1 (one) tablet by mouth as needed Active fluticasone propionate (Flonase) 50 MCG/ACT nasal spray [place] 1 (one) spray into each nostril once daily 4 Active omeprazole (PriLOSEC) 20 MG capsule Take 1 (one) capsule by mouth as directed 4 Active albuterol (Proventil;Jonathan paulino) (2.5 MG/3ML) 0.083% nebulizer solution Inhale 2.5 (two and one-half) mg by mouth as directed 3 Active Melatonin-Pyrido xine (MELATIN PO) Take 5 mg by mouth at bedtime Active ALPRAZolam (Xanax) 0.25 MG tablet Take 1 (one) tablet by mouth once daily 4 Active methylPREDNISolo ne (Medrol Dosepak) 4 MG tablet Take 1 (one) tablet by mouth as directed 4 Active naproxen (Naprosyn) 500 MG tablet Take 1 (one) tablet by mouth 2 times daily as needed for Pain 4 Active predniSONE (Deltasone) 20 MG tablet Take 2 (two) tablets by mouth once daily 4 Active meloxicam (Mobic) 7.5 MG tablet Take 1 (one) tablet by mouth once daily 5 Active azelastine (Astelin) 0.1 % nasal spray [place] 1 (one) spray into each nostril 2 times daily 30 mL 5 Active Active Problems No known active problems Encounters Date Type Department Care Team Description 08/26/2024 3:45 PM CDT Office Visit [facility] - ENT [address] [place] [phone] Greg Call MD 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 Never 08/26/2023 Comments No Sex and Gender Information Value Date Recorded Sex Assigned at Not on file Legal Sex Female 8:57 AM FINISHER CARD TENDER Gender Identity Not on file Sexual Orientation Not on file Last Filed Vital Signs Vital Sign Reading Time Taken Comments Blood Pressure 102/73 08/26/2024 3:42 PM CDT Pulse 85 08/26/2024 3:42 PM CDT Temperature 36.6 C (97.8 F) 08/26/2023 8:57 AM CDT Respiratory Rate 15 08/26/2023 9:30 AM CDT Oxygen Saturation 95% 08/26/2023 9:30 AM CDT Inhaled Oxygen Concentration - - Weight 74.8 kg (165 lb) 08/26/2024 3:42 PM CDT Height 172.7 cm (5' 8 ) 08/26/2024 3:42 PM CDT Body Mass Index 25.09 08/26/2024 3:42 PM CDT Plan of Treatment Upcoming Encounters Date Type Department Care Team (Late st Contact Info) Description 01/27/2025 3:45 PM CDT Office Visit [facility] - ENT [address] [place] [phone] [place] [id number] [place] [address] Health Maintenance Due Date Last Done Comments [...] (1 of 2) 2012 COVID-19 VACCINE (4 - 2023-2 5 season) 2024 03/27/2021, 08/24/2020, 07/27/2020 DEPRESSION SCREENING 2024 SCREENING FOR DIABETES 08/26/2024 INFLUENZA VACCINE (Season Ended) 2025 LIPID TESTING 12/19/2026 12/19/2021 Respiratory Syncytial Virus [...] to complete this topic Insurance MEDICARE MEDICAID - [place] Care Teams Gift Shop Manager Relationship Specialty Start Date End Date Fermín Langford MD [address] [place] [address] PCP - General Family Medicine 08/26/24
--- OUTSIDE RECORDS SUMMARY | 2024-09-23 10:23 | XMS_ITS | Continuity of Care Document ---
Author Organization [employer] Address [address] [place] [address] Phone Care Team Providers Care Photographic Process Screen Maker Name Role Phone Conversion MD, Doctor Unavailable [...] Providers Copied on Encounter PATRICK Chávez [address], [place], [place], [address] , [place] tel:[phone] Conversion Department No Information 1 Conversion Doctor. [facility], [place], [address], [place]. [facility], [address], [place], [place], [address] , [place] tel: [phone] Conversion Department ASTHMA NOSMYALGIA AND MYOSITIS NOSANXIETY STATE NOSHX-JIM THROMBOSIS/EMBOL S [address] [facility], [place], [address], [place]. [facility], [address], [place], [place], [address] , [place] tel: [phone] Conversion Department RECURR DEPR PSYCHOS-MOD 7 [facility]. [address], [address], [place], [place], [address], [place]. tel:[phone] [facility], [address], [place], [place], [address] , [place] tel: [phone] Conversion Department PULM EMBOL/INFARCT NECDEPRESSIVE DISORDER NEC [address] [facility], [place], [address], [place]. [facility], [address], [place], [place], [address] , tel: [phone] Conversion Department URIN TRACT INFECTION NOSCANDIDAL VULVOVAGINITIS 6 [facility] Hilda. [address], [address], [place], [place], [address], [place]. tel:[phone] [facility], [address], [place], [place], [address] , [place] tel: [phone] Conversion Department INITIATE CONTRACEPT NEC [address] [facility], [place], [address], [place]. [facility], [address], [place], [place], [address] , [place] tel: [phone] Conversion Department LONG-TERM USE ANTICOAGUL 6 Conversion Doctor. [address] [place], [address], [place]. [facility], [address], [place], [place], [address] , tel: [phone] Conversion Department [facility] BEHAV RENNY SKIN [address] [facility], [place], [address], [place]. [facility], [address], [place], [place], [address] , [place] tel: [phone] Conversion Department MALAISE AND FATIGUE NEC 1-200 6 Conversion Doctor. [address] [place], [address], [place]. [facility], [address], [place], [place], [address] , [place] tel: [phone] Conversion Department RESPIRATORY ABNORM NECOTHER LUNG DISEASE NEC 0 7-200 6 Conversion Doctor. [address] [place], [address], [place]. [facility], [address], [place], [place], [address] , [place] tel: [phone] Conversion Department DYSURIA 8-200 6 Conversion Doctor. [address] [place], [address], [place]. [facility], [address], [place], [place], [address] , tel: [phone] Conversion Department BENIGN RENNY BRONCHUS/LUNGCON STIPATION NEC 9-200 6 Conversion Doctor. [address] [place], [address], [place]. [facility], [address], [place], [place], [address] , [place] tel: [phone] [facility] WBC DISEASE NECLOCAL SUPRFICIAL SWELLNG 4-200 6 Conversion Doctor. [address] [place], [address], [place]. [facility], [address], [place], [place], [address] , [place] tel: [phone] Conversion Department CHEST PAIN NEC 8-200 6 Conversion Doctor. [address] [place], [address], [place]. [facility], [address], [place], [place], [address] , [place] tel: [phone] Conversion Department SCREEN-THYROID DISORDERROUTINE MEDICAL EXAMSCREEN-CARDI OVASC NEC 0-200 6 Conversion Doctor. [address] [place], [address], [place]. [facility], [address], [place], [place], [address] , [place] tel: [phone] Conversion Department No Information Konstantin-0 7-200 6 Edil Tamayo. [address], [place], [address], [place]. tel:[phone] [facility], [address], [place], [place], [address] , tel: [phone] Conversion Department No Information Dec-3 0-200 5 Edil Tamayo. [address], [place], [address], . tel:[phone] [facility], [address], [place], [place], [address] , tel: [phone] Conversion Department ALLERGY, UNSPECIFIED Dec-3 0-200 5 Conversion Doctor. [address] [place] [address], [address], . Family History Family Member Type Diagnosis Age At Onset No Information Payers Payer name Insurance type Covered republican ID Authoriza tion(s) No Information Social History [...]
[2024-09-23 11:54] LABS: Free T4 Free Thyroxine 1.04 ng/dL (0.78-2.19)
[2024-09-23 12:06] LABS: Total Triiodothyronine (T3) 1.07 NG/ML (0.97-1.69)
== END 2024-09-23 10:17 | disposition home or self-care (01) ==
PROVIDERS: PCP Family Medicine; Visit Provider Family Medicine
DX: E07.9 Disorder of thyroid, unspecified (principal); M79.7 Fibromyalgia; Z13.29 Encounter for screening for other suspected endocrine disorder
CPT/HCPCS: 36415; 84439; 84443; 84480

== ENCOUNTER 2025-04-12 07:48 | Outpatient (CLI) | payer MEDICARE, MEDICAID, SELFPAY ==
[2025-04-12 08:38] LABS: Hematocrit 40.5 % (37.0-47.0); Hemoglobin 13.2 g/dL (12.0-15.0); Immature Granulocyte Percent A 0.5 % (0-0.5); Lymphocytes Absolute Auto 1.24 K/mm3 (0.9-3.2); Mean Corpuscular HGB Conc 32.6 g/dl (32-36); Mean Corpuscular Hemoglobin 30.8 pg (26-34); Mean Corpuscular Volume 94.4 fl (80-100); Nucleated Red Blood Cells Absolute Auto 0.000 K/mm3 (0.0-0.012); Nucleated Red Blood Cells Perc 0.0 % (0.0-0.2); Platelet Count Result 204 k/mm3 (150-375); Red Blood Count 4.29 M/mm3 (4.2-5.4); White Blood Count 4.4 K/mm3 (4.5-10.0)
[2025-04-12 08:58] LABS: Alanine Aminotransferase 15 U/L (6-35); Albumin Level 4.1 g/dL (3.5-5.1); Alkaline Phosphatase 74 U/L (38-126); Anion Gap 2 mmol/L (4-12); Aspartate Amino Transferase 22 U/L (14-36); Bilirubin,Total 0.8 mg/dL (0.2-1.3); Blood Urea Nitrogen 14 mg/dL (7-17); Calcium 8.9 mg/dL (8.4-10.2); Carbon Dioxide 26 mmol/L (22-30); Chloride 108 mmol/L (98-107); Cholesterol 224 mg/dL (0-200); Estimated Glomerular Filt Rate > 60; Glucose 99 mg/dL (65-110); HDL Direct 72 mg/dL; Potassium 4.3 mmol/L (3.4-5.0); Sodium 136 mmol/L (137-145); Total Protein 6.6 g/dL (6.3-8.2); Triglycerides 79 mg/dL (<150)
[2025-04-12 09:16] LABS: Free T4 Free Thyroxine 1.08 ng/dL (0.78-2.19)
[2025-04-12 09:33] LABS: Thyroid Stimulating Hormone 6.370 uIU/mL (0.465-4.680)
== END 2025-04-12 07:49 | disposition home or self-care (01) ==
PROVIDERS: PCP Family Medicine; Visit Provider Nurse Practitioner Family
DX: E78.5 Hyperlipidemia, unspecified (principal); E55.9 Vitamin D deficiency, unspecified; Z13.29 Encounter for screening for other suspected endocrine disorder; Z11.59 Encounter for screening for other viral diseases
CPT/HCPCS: 36415; 80053; 80061; 82306; 84439; 84443; 85025; 86803